=== PATIENT | female | born 1965 ===

== ENCOUNTER 2022-02-05 06:53 | Day surgery (SDC) | payer OTHER, SELFPAY ==
[2022-02-01 12:47] VITALS: BMI 25.7
--- NOTE | 2022-02-04 10:37 | P.CONAN_ITS ---
Documented by User: Chanelle Escobar NP 02/04/22 10:37 HPI - Anesthesia Eval Consult details Narrative: 56yo F for Colonoscopy PMFSH Past Medical History Medical History (Updated 02/01/22 @ 12:48 by Snehal Leiva RN) Asthma COVID-19 vaccine series completed Elevated cholesterol GERD (gastroesophageal reflux disease) Surgical History Surgical History (Updated 02/01/22 @ 12:47 by Snehal Leiva RN) H/O colonoscopy History of esophagogastroduodenoscopy (EGD) Hx of nasal polypectomy Social History Social History Are you a primary child care center administrator to a significant other at home: No Do you presently have visiting nurse or other home services: No Patient Tobacco Use Status: Never used Tobacco Use of substances other than those prescribed or required for medical reasons: No Have you been hit, kicked, punched, or otherwise hurt by someone within the past year? If so, by whom?: No Are you DNR?: No Advance Directives: No Advance Directives Information Provided: Yes (brochure mailed) Advance Directives on File: No Recently lost weight without trying: No Eating poorly because of decreased appetite: No Nutrition Risks: No Nutritional Risk Poor oral hygiene: No Meds Allergies Allergy/AdvReac Type Severity Reaction Status Date / Time almond Allergy Intermediate Itching ? Verified 02/01/22 12:53 animal dander Allergy Intermediate asthma Verified 02/01/22 12:45 exacerbation mite-Dermatophagoides Allergy Intermediate asthma Verified 02/01/22 12:45 farinae, louie exacerbation [dust mite - [place]] soy Allergy Intermediate Itching ? Verified 02/01/22 12:53 Home Medications Medication Instructions Recorded Confirmed Last Taken Type albuterol sulfate 90 mcg/actuation 2 puff PO Q4H PRN 02/01/22 02/01/22 Unknown History aerosol inhaler dupilumab 300 mg/2 mL subcutaneous 300 mg SUBCUT Q4W 02/01/22 02/01/22 Unknown History pen injector (Dupixent) fluticasone 500 mcg-salmeterol 50 1 puff PO BID 02/01/22 02/01/22 Unknown History mcg/dose blistr powdr for inhalation (Advair Diskus) loratadine 10 mg tablet 10 mg PO DAILY 02/01/22 02/01/22 Unknown History montelukast 10 mg tablet 1 tab PO BEDTIME 02/01/22 02/01/22 Unknown History omeprazole 20 mg capsule,delayed 1 cap PO DAILY 02/01/22 02/01/22 Unknown History release umeclidinium 62.5 mcg/actuation 1 puff PO DAILY 02/01/22 02/01/22 Unknown History blister powder for inhalation (Incruse Ellipta) Exam Exam Date and Time: February 04, 2022 1037 Height,Weight and Vital Signs: Height 5 ft 7 in Weight 74.389 kg Assessment and Plan Assessment Anesthesia Assessment: Chart Reviewed Documented by User: Heaven Lu MD 02/05/22 08:30 PMFSH Active Problems Active Problems: Allergies Asthma. Inhaler prn Past Medical History Medical History (Updated 02/01/22 @ 12:48 by Snehal Leiva RN) Asthma COVID-19 vaccine series completed Elevated cholesterol GERD (gastroesophageal reflux disease) Family History Family history of problems with anesthesia: No Surgical History Surgical History (Updated 02/01/22 @ 12:47 by Snehal Leiva RN) H/O colonoscopy History of esophagogastroduodenoscopy (EGD) Hx of nasal polypectomy History of Problems with Anesthesia: No Social History Social History Are you a primary child care center administrator to a significant other at home: No Do you presently have visiting nurse or other home services: No Patient Tobacco Use Status: Never used Tobacco Use of substances other than those prescribed or required for medical reasons: No Have you been hit, kicked, punched, or otherwise hurt by someone within the past year? If so, by whom?: No Are you DNR?: No Advance Directives: No Advance Directives Information Provided: Yes (brochure mailed) Advance Directives on File: No Recently lost weight without trying: No Eating poorly because of decreased appetite: No Nutrition Risks: No Nutritional Risk Poor oral hygiene: No Meds Allergies Allergy/AdvReac Type Severity Reaction Status Date / Time almond Allergy Intermediate Itching ? Verified 02/01/22 12:53 animal dander Allergy Intermediate asthma Verified 02/01/22 12:45 exacerbation mite-Dermatophagoides Allergy Intermediate asthma Verified 02/01/22 12:45 farinae, louie exacerbation [dust mite - [place]] soy Allergy Intermediate Itching ? Verified 02/01/22 12:53 Home Medications Medication Instructions Recorded Confirmed Last Taken Type albuterol sulfate 90 mcg/actuation 2 puff PO Q4H PRN 02/01/22 02/01/22 Unknown History aerosol inhaler dupilumab 300 mg/2 mL subcutaneous 300 mg SUBCUT Q4W 02/01/22 02/01/22 Unknown History pen injector (Dupixent) fluticasone 500 mcg-salmeterol 50 1 puff PO BID 02/01/22 02/01/22 Unknown History mcg/dose blistr powdr for inhalation (Advair Diskus) loratadine 10 mg tablet 10 mg PO DAILY 02/01/22 02/01/22 Unknown History montelukast 10 mg tablet 1 tab PO BEDTIME 02/01/22 02/01/22 Unknown History omeprazole 20 mg capsule,delayed 1 cap PO DAILY 02/01/22 02/01/22 Unknown History release umeclidinium 62.5 mcg/actuation 1 puff PO DAILY 02/01/22 02/01/22 Unknown History blister powder for inhalation (Incruse Ellipta) Exam Height,Weight and Vital Signs: Height 5 ft 7 in Weight 74.389 kg Vital Signs Temp Pulse Resp BP Pulse Ox 02/05/22 07:01 97 F 99 17 116/72 99 Airway Mallampati Class: II TM Dist: >3cm Neck ROM: Full Loose/Missing/Broken Teeth: No Heart: RRR Lungs: CTAB Assessment and Plan Assessment Anesthesia Assessment: Anesthesia Plan Discussed Final Anesthetic Review Family History of Problems with Anesthesia: No History of Problems with Anesthesia: No NPO: Yes ASA Class: II Final Preanesthetic Review: No Changes in Pt Med Stat, Meds/Allgs Chart Reviewed, Consent Obtained/Reviewed and Anes Risks/Benef Reviewed Patient Risk: Low Procedure Risk: Low Assessment/Block/Sedation in SS: Assess/Block/Sedation-SS Anesthetic Plan Anesthetic Plan: MAC: Disposition: Standard PACU
[2022-02-05 07:01] VITALS: BP 116/72; PULSE 99; RESP 17; TEMP 36.1; O2SAT 99
[2022-02-05] MEDS: Lactated Ringers 1,000 ML 100 ML IVCONT (07:22)
--- NOTE | 2022-02-05 08:01 | P.HPSUR_ITS ---
Pre-Procedural Eval Section A Date of Service: 02/05/22 The patient is an INPATIENT: No Changes since office visit: No Cold of Flu in the past 2 weeks, No New Medical Problems, No Changes in Medication and No Patient answered all questions The History & Physical has been completed within 30 days and I have reviewed it.: Yes Section B Chief Complaint: screening Allergies: Allergies Allergy/AdvReac Type Severity Reaction Status Date / Time almond Allergy Intermediate Itching ? Verified 02/01/22 12:53 animal dander Allergy Intermediate asthma Verified 02/01/22 12:45 exacerbation mite-Dermatophagoides Allergy Intermediate asthma Verified 02/01/22 12:45 farinae, louie exacerbation [dust mite - [place]] soy Allergy Intermediate Itching ? Verified 02/01/22 12:53 Plan I have reviewed the history and physical and performed a pertinent physical examination on my patient. No changes have occurred unless specified.
[2022-02-05 08:40] VITALS: BP 106/68; PULSE 78; RESP 16; TEMP 36.5; O2SAT 100
--- NOTE | 2022-02-05 08:48 | PM.OP ---
Brief Operative Note Date of Service: 02/05/22 Pre-op diagnosis: screening Post-op diagnosis: same (colitis) Surgeon: Lasha Soria Anesthesia: MAC Was an History Faculty Member used for this Procedure?: No Estimated blood loss (mL): 5 Pathology: other (multiple bxs) Condition: stable Disposition: PACU
[2022-02-05 08:55] VITALS: BP 113/68; PULSE 82; RESP 16; O2SAT 100
--- NOTE | 2022-02-05 12:05 | OP_ITS ---
SURGEON: Lasha Soria MD INDICATIONS: Colon cancer screening. PREOPERATIVE DIAGNOSIS: POSTOPERATIVE DIAGNOSIS: PROCEDURE PERFORMED: Colonoscopy to the terminal ileum with biopsy. ESTIMATED BLOOD LOSS: COMPLICATIONS: ANESTHESIA: ASSISTANTS: SPECIMENS: MEDICATIONS: Monitored anesthesia care. DESCRIPTION OF PROCEDURE: History and physical were performed. The risks and benefits of the procedure were explained to the patient. An informed consent was obtained. The patient was placed in the left lateral decubitus position. A digital rectal exam was performed and was found to be normal. The Olympus pediatric video colonoscope was introduced into the rectum and advanced to cecum without difficulty. The cecum was identified by transillumination, palpation, and identification of ileocecal valve. Examination was performed. The scope was removed. She tolerated the procedure well and returned to recovery area in stable condition. FINDINGS: The terminal ileum was examined and appeared normal. The visualized colonic mucosa showed changes of colitis throughout the colon beginning in the rectum and extending to the cecum. The changes included erythema, edema, loss of vascular pattern, and punctate superficial ulceration measuring 1 to 3 mm. The mucosa was friable. The appearance was consistent with ulcerative colitis. Biopsies were obtained beginning in the cecum extending throughout the colon. Biopsies were also obtained from the normal-appearing terminal ileum. No polyps were identified. Retroflexed examination showed internal hemorrhoids. IMPRESSION: Colitis. RECOMMENDATION: Follow up the biopsy results. MD MARQUEZ Gray/MENDEZ / [id number]
== END 2022-02-05 10:00 | disposition home or self-care (01) ==
PROVIDERS: Visit Provider Internal Medicine Gastroenterology
PROC: 0DJD8ZZ Inspection of Lower Intestinal Tract, Via Natural or Artificial Opening Endoscopic (ICD-10-PCS; CPT 45378; principal; 2022-02-05 08:10)
DX: Z12.11 Encounter for screening for malignant neoplasm of colon (principal); Z83.71 Family history of colonic polyps; K51.80 Other ulcerative colitis without complications; K21.9 Gastro-esophageal reflux disease without esophagitis; K64.8 Other hemorrhoids; E78.00 Pure hypercholesterolemia, unspecified; J45.909 Unspecified asthma, uncomplicated; Z79.51 Long term (current) use of inhaled steroids; Z79.899 Other long term (current) drug therapy
CPT/HCPCS: 45380; 88305

== ENCOUNTER 2022-02-15 12:04 | Emergency (ER) | payer OTHER, SELFPAY ==
--- NOTE | ~2022-02-15 | CT_ITS ---
EXAMINATION: CT ABDOMEN AND PELVIS WITHOUT CONTRAST CLINICAL INFORMATION: Colitis. COMPARISON: None TECHNIQUE: Multidetector volumetric imaging was performed from the superior aspect of the liver through the pubic symphysis. Sagittal and coronal reformatted images were obtained on the technologist's workstation. This CT examination was performed using dose optimization techniques as appropriate, variously including the following: *Automated exposure control *Adjustment of mA and/or kV according to patient size (this includes techniques or standardized protocols for targeted exams where dose is matched to indication/reason for exam; i.e. extremities or head) *Use of iterative reconstruction technique DLP: 619 mGy-cm FINDINGS: LUNG BASES: The lung bases are unremarkable. LIVER, GALLBLADDER, AND BILIARY TREE: The liver is normal in size, shape, and attenuation. No focal hepatic lesion or biliary ductal dilatation is present. The gallbladder is unremarkable with no evidence of radiopaque gallstones, gallbladder wall thickening, or obvious pericholecystic inflammatory changes. PANCREAS: Unremarkable. SPLEEN: Unremarkable. ADRENAL GLANDS: Unremarkable. KIDNEYS AND URETERS: The kidneys are normal in size, shape, and attenuation. There is a nonobstructive 5 mm radiopaque calculi lower pole right kidney. No caliectasis seen. No additional radiopaque calculi. No perinephric stranding. BLADDER: The bladder is nondistended GASTROINTESTINAL TRACT: There is diffuse mural thickening involving the ascending, transverse and descending colon suggestive of inflammatory or infectious colitis. The small bowel loops are normal caliber. Appendix is normal caliber. No free fluid or free air seen. There is no abscess, free air or free fluid seen. The stomach is nondistended. ABDOMINAL WALL: There is a small umbilical hernia containing fat. LYMPH NODES: Normal. VASCULAR: Unremarkable. PELVIC VISCERA: There is a amorphous calcification in the right pelvis. The uterus is midline. No adnexal mass seen. There is extensive fat stranding around the sigmoid colon and the rectum on inflammatory bowel disease. No abscess seen. OSSEOUS STRUCTURES: Mild bilateral L5-S1, L4-L5 facet joint arthropathy. CT/CT abdomen pelvis wo con IMPRESSION: Diffuse mural thickening involving the entire colon and rectum suggestive of inflammatory or infectious colitis. There is no proximal bowel obstruction, free fluid or abscess. Normal appendix. Nonobstructive radiopaque calculi lower pole right kidney. Fleischner guidelines were followed.
[2022-02-15 12:22] VITALS: BP 112/69; PULSE 101; RESP 18; TEMP 36; O2SAT 99; BMI 24.3
[2022-02-15 16:04] LABS: Anion Gap 13 (12-20); Blood Urea Nitrogen 11 mg/dL (9-16); Calcium 8.7 mg/dL (8.4-10.2); Carbon Dioxide 26 mmol/L (22-29); Chloride 96 mmol/L (96-108); Creatinine Clr Calc Pharmacy 63.4; Estimated Glomerular Filt Rate > 60; Glucose Random 122 mg/dL (60-115); Potassium 5.5 mmol/L (3.3-5.1); Sodium 129 mmol/L (135-145)
[2022-02-15 16:14] LABS: Basophils Absolute Auto 0.1 X10*3/uL (0.0-0.2); Basophils Percent Auto 0.3 % (0-2); Eosinophils Absolute Auto 2.9 X10*3/uL (0.0-0.4); Eosinophils Percent Auto 15.4 % (0-4); Hematocrit 38.2 % (37.0-47.0); Hemoglobin 12.5 g/dl (12.0-16.0); Imm Gran Abs Auto 0.31 X10*3/uL (0.00-0.03); Imm Gran Pct Auto 1.7 % (0.0-0.4); Lymphocytes Absolute Auto 2.7 X10*3/uL (1.2-4.9); Lymphocytes Percent Auto 14.2 % (20-40); MANUAL DIFF FLAG SCAN; Mean Corpuscular HGB Conc 32.7 g/dl (31.0-35.0); Mean Corpuscular Volume 91.6 fL (80.0-98.0); Mean Platelet Volume 8.8 fL (9.4-12.3); Monocytes Absolute Auto 1.6 X10*3/uL (0.1-1.2); Monocytes Percent Auto 8.6 % (2-11); Neutrophils Absolute Auto 11.1 x10*3/uL (2.0-8.3); Neutrophils Percent Auto 59.8 % (45-73); Platelet Count 387 X10*3/uL (160-400); Red Blood Count 4.17 X10*6/uL (4.20-5.50); Red Cell Distribution Width 13.4 % (11.0-16.0); SCAN SMEAR FLAG 1; White Blood Count 18.6 X10*3/uL (4.8-10.8)
[2022-02-15 16:33] VITALS: BP 120/71; PULSE 99; RESP 16; TEMP 36.6; O2SAT 99
--- NOTE | 2022-02-15 16:35 | ED.ABDPAIN ---
HPI - Abdominal Pain General Chief Complaint: GI Bleed Stated Complaint: Diarrhea/blood in stool Time Seen by Provider: 02/15/22 16:34 Source: patient Mode of arrival: ambulatory Limitations: no limitations History of Present Illness HPI narrative: Patient's history of 4 weeks of diarrhea with abdominal cramping seen jack winder did colonoscopy in 02/05 shows nonspecific colitis comes here as still having the diarrhea and abdominal cramps unable to eat much for last few days patient does have about 7-8 times loose bowel movements every day had some streaks of blood. No nausea no vomiting pain and diarrhea gets worse after eating Related Data Home Medications Medication Instructions Recorded Confirmed albuterol sulfate 90 mcg/actuation 2 puff PO Q4H PRN 02/01/22 02/01/22 aerosol inhaler dupilumab 300 mg/2 mL subcutaneous 300 mg SUBCUT Q4W 02/01/22 02/01/22 pen injector (Dupixent) fluticasone 500 mcg-salmeterol 50 1 puff PO BID 02/01/22 02/01/22 mcg/dose blistr powdr for inhalation (Advair Diskus) loratadine 10 mg tablet 10 mg PO DAILY 02/01/22 02/01/22 montelukast 10 mg tablet 1 tab PO BEDTIME 02/01/22 02/01/22 omeprazole 20 mg capsule,delayed 1 cap PO DAILY 02/01/22 02/01/22 release umeclidinium 62.5 mcg/actuation 1 puff PO DAILY 02/01/22 02/01/22 blister powder for inhalation (Incruse Ellipta) Previous Rx's Medication Instructions Recorded ciprofloxacin HCl 500 mg tablet 500 mg PO BID #20 tab 02/15/22 (Cipro) dicyclomine 20 mg tablet 20 mg PO QID PRN #20 tab 02/15/22 metronidazole 500 mg tablet 500 mg PO BID 10 Days #20 tab 02/15/22 prednisone 20 mg tablet 40 mg PO DAILY #10 tab 02/15/22 Allergies Allergy/AdvReac Type Severity Reaction Status Date / Time almond Allergy Intermediate Itching ? Verified 02/01/22 12:53 animal dander Allergy Intermediate asthma Verified 02/01/22 12:45 exacerbation mite-Dermatophagoides Allergy Intermediate asthma Verified 02/01/22 12:45 farinae, louie exacerbation [dust mite - [place]] soy Allergy Intermediate Itching ? Verified 02/01/22 12:53 Review of Systems Review of Systems Yes all other systems are reviewed and are negative FOR[facility]LY [facility], [facility] Past Medical History Medical History Asthma COVID-19 vaccine series completed Elevated cholesterol GERD (gastroesophageal reflux disease) Surgical History H/O colonoscopy History of esophagogastroduodenoscopy (EGD) Hx of nasal polypectomy Social History Social History Are you a primary home health care coordinator to a significant other at home: No Do you presently have visiting nurse or other home services: No Patient Tobacco Use Status: Never used Tobacco Advance Directives: No Advance Directives Information Provided: No Patient : No Physical Exam ED Vital Signs: Vital Signs - 24 hr 02/15/22 12:22 02/15/22 16:33 02/15/22 19:05 Temperature 96.8 F 98 F Pulse Rate 101 H 99 100 Respiratory Rate 18 16 15 Blood Pressure 112/69 120/71 109/59 L Pulse Oximetry 99 99 100 02/15/22 19:40 Temperature Pulse Rate 92 Respiratory Rate Blood Pressure 98/56 L Pulse Oximetry 98 BMI result Body Mass Index 24.3 Appearance: Alert. Oriented X3. No acute distress. Eyes: No pallor or icterus ENT: Pharynx normal. Oral Mucosa moist Neck: Normal inspection. Neck supple. CVS: Normal heart rate and rhythm. Pulses normal. Respiratory: No respiratory distress. Equal air entry bilateral, no wheezing/rales/rhonchi Abdomen: Soft and diffuse tenderness Bowel sounds are present, no mass palpable, no CVA tenderness Skin: Skin warm and dry. Normal skin color. Normal skin turgor. Extremities: No lower extremity edema. No calf tenderness Neuro: Oriented X 3. 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 Will discharge patient home on p.o. Cipro and Flagyl along with prednisone course advised to follow up with Dr. Soria patient is on Dupixent injections for asthma Medical Records Attestation: I reviewed the patient's medical records. Lab Data Attestation: I reviewed the patient's lab results. Result diagrams: 02/15/22 15:40 02/15/22 15:40 Labs: Lab Results 02/15/22 02/15/22 Range/Units 15:40 15:40 WBC 18.6 H (4.8-10.8) X10*3/uL RBC 4.17 L (4.20-5.50) X10*6/uL Hgb 12.5 (12.0-16.0) g/dl Hct 38.2 (37.0-47.0) % MCV 91.6 (80.0-98.0) fL MCH 30.0 (27.0-33.0) pg MCHC 32.7 (31.0-35.0) g/dl RDW 13.4 (11.0-16.0) % Plt Count 387 (160-400) X10*3/uL MPV 8.8 L (9.4-12.3) fL Immature Gran % (Auto) 1.7 H (0.0-0.4) % Neut % (Auto) 59.8 (45-73) % Lymph % (Auto) 14.2 L (20-40) % Kemper % (Auto) 8.6 (2-11) % Eos % (Auto) 15.4 H (0-4) % Baso % (Auto) 0.3 (0-2) % Lymph # (Auto) 2.7 (1.2-4.9) X10*3/uL Kemper # (Auto) 1.6 H (0.1-1.2) X10*3/uL Eos # (Auto) 2.9 H (0.0-0.4) X10*3/uL Baso # (Auto) 0.1 (0.0-0.2) X10*3/uL Abs Immat Gran (auto) 0.31 H (0.00-0.03) X10*3/uL Absolute Neuts (auto) 11.1 H (2.0-8.3) x10*3/uL Absolute Nucleated RBC 0.000 (0.0-0.012) X10*3/uL Nucleated RBC % (auto) 0.0 (0.0-0.2) /100WBC Smear Tech's Comments VERIFIED Sodium 129 L (135-145) mmol/L Potassium 5.5 H (3.3-5.1) mmol/L Chloride 96 (96-108) mmol/L Carbon Dioxide 26 (22-29) mmol/L Anion Gap 13 (12-20) BUN 11 (9-16) mg/dL Creatinine 0.94 (0.5-1.4) mg/dL Estim Creat Clear Calc 63.4 Estimated GFR > 60 Random Glucose 122 H (60-115) mg/dL Calcium 8.7 (8.4-10.2) mg/dL Total Bilirubin 0.5 (0.0-1.0) mg/dL Direct Bilirubin 0.3 (0.0-0.5) mg/dL AST 15 (5-31) U/L ALT 16 (0-31) U/L Alkaline Phosphatase 93 (39-117) U/L C-Reactive Protein 16.75 H (< or = 0.50) mg/dL Total Protein 7.0 (6.5-8.0) g/dL Albumin 3.0 L (3.5-5.0) g/dL Discharge Plan Discharge Clinical Impression: Colitis Patient Disposition: Home, Self-Care Instructions: Colitis (ED) Additional Instructions: Drink plenty of fluids Take antibiotic as prescribed along with prednisone Follow-up with gastroenterology Prescriptions: New prednisone 20 mg tablet 40 mg PO DAILY Qty: 10 0RF ciprofloxacin HCl [Cipro] 500 mg tablet 500 mg PO BID Qty: 20 0RF metronidazole 500 mg tablet 500 mg PO BID 10 Days Qty: 20 0RF dicyclomine 20 mg tablet 20 mg PO QID PRN (Reason: abdominal pain) Qty: 20 0RF No Action fluticasone propion-salmeterol [Advair Diskus] 500-50 mcg/dose blister with device 1 puff PO BID 0RF omeprazole 20 mg capsule,delayed release(DR/EC) 1 cap PO DAILY 0RF montelukast 10 mg tablet 1 tab PO BEDTIME 0RF albuterol sulfate 90 mcg/actuation HFA aerosol inhaler 2 puff PO Q4H PRN (Reason: wheezing) 0RF Incruse Ellipta 62.5 mcg/actuation blister with device 1 puff PO DAILY 0RF Dupixent Pen 300 mg/2 mL pen injector 300 mg subcut Q4W 0RF loratadine 10 mg Tablet 10 mg PO DAILY 0RF Referrals: Lasha Soria [Physician] - 3 days Stand Alone Forms: Work/School Release Interventions: ED Discharge Assessment Last Done: 02/15/22 19:30 Discharge Date/Time: 02/15/22 19:57
[2022-02-15] MEDS: Dicyclomine HCl 10 MG CAPSULE 20 MG PO (17:06)
[2022-02-15] MEDS: 0.9 % Sodium Chloride 1,000 ML 999 ML IV (17:14)
[2022-02-15] MEDS: metroNIDAZOLE/NS 500 MG/100 ML PIGGYBACK 100 MG IV (17:14)
[2022-02-15 17:25] LABS: Alanine Aminotransferase 16 U/L (0-31); Alkaline Phosphatase 93 U/L (39-117); Aspartate Amino Transferase 15 U/L (5-31); Bilirubin Direct 0.3 mg/dL (0.0-0.5); Bilirubin Total 0.5 mg/dL (0.0-1.0); C Reactive Protein 16.75 mg/dL (< or = 0.50)
[2022-02-15] MEDS: levoFLOXacin/D5W 500 MG/100 ML PIGGYBACK 100 MG IV (18:17)
[2022-02-15 18:24] LABS: SLIDE REVIEW VERIFIED
[2022-02-15 19:05] VITALS: BP 109/59; PULSE 100; RESP 15; O2SAT 100
--- NOTE | 2022-02-15 19:05 | PC.NURSE ---
pt ambulated to BR independently with no c/o dizziness, to give stool spec. pt voided in collection hat accidentally. pt educated that we need a bowel spec without urine in it
[2022-02-15] MEDS: methylPREDNISolone Sod Succ 125 MG/2 ML VIAL IVPUSH (19:31)
[2022-02-15 19:40] VITALS: BP 98/56; PULSE 92; O2SAT 98
== END 2022-02-15 19:57 | disposition home or self-care (01) ==
PROVIDERS: Emergency Provider Internal Medicine
DX: K52.9 Noninfective gastroenteritis and colitis, unspecified (principal); D72.10 Eosinophilia, unspecified; J45.909 Unspecified asthma, uncomplicated
CPT/HCPCS: 36415; 74176; 80048; 80076; 85025; 86140; 96361; 96374; 96375; 99284; J1956; J2930

== ENCOUNTER 2022-12-30 11:51 | Inpatient (IN) | payer MEDICAID, SELFPAY ==
--- NOTE | ~2022-12-30 | CT_ITS ---
EXAMINATION: CT ABDOMEN AND PELVIS WITHOUT CONTRAST CLINICAL INFORMATION: Abdominal pain and bloody diarrhea. COMPARISON: 02/15/2022 TECHNIQUE: Multidetector volumetric imaging was performed from the superior aspect of the liver through the pubic symphysis. Sagittal and coronal reformatted images were obtained on the technologist's workstation. This CT examination was performed using dose optimization techniques as appropriate, variously including the following: *Automated exposure control *Adjustment of mA and/or kV according to patient size (this includes techniques or standardized protocols for targeted exams where dose is matched to indication/reason for exam; i.e. extremities or head) *Use of iterative reconstruction technique DLP: 591 mGy-cm FINDINGS: LUNG BASES: Normal. No pulmonary consolidation or pleural effusion. LIVER: Liver has normal size and contour. The parenchyma has density of 35-40 Hounsfield units. No focal liver lesion is identified on this noncontrast examination. GALLBLADDER AND BILIARY TREE: Gallbladder is physiologically distended and without radiopaque stones, wall thickening or pericholecystic fluid. No dilated bile ducts. PANCREAS: Normal. No edema, pancreatic ductal dilatation or mass. SPLEEN: Normal. ADRENAL GLANDS: Normal. KIDNEYS AND URETERS: The kidneys have normal size and cortical thickness. No perinephric edema or fluid collection. No urolithiasis or hydroureteronephrosis. The stone previously observed at the lower pole of the right kidney is no longer identified. BLADDER: Normal. No calculi or wall thickening. BOWEL AND PERITONEUM: The evaluation of the gastrointestinal tract is partially limited on this examination performed without use of oral or intravenous contrast. The stomach is underdistended and grossly normal. Small bowel is unremarkable. The appendix is normal. There is mild circumferential thickening of the colonic wall from the level of the cecum to the rectum. The colonic wall thickening was worse on 02/15/2022. No abdominal free fluid, free air or abscess. ABDOMINAL WALL: Unremarkable. VASCULATURE: Normal for a noncontrast examination. LYMPH NODES: No pathologic sized lymph nodes in the abdomen or pelvis. No inguinal lymphadenopathy. PELVIC VISCERA: Unremarkable. MUSCULOSKELETAL: Again noted is a lipoma of the left gluteus minimus muscle. Chronic facet osteoarthritis of L4-L5 and L5-S1 and minimal anterolisthesis of L5 on S1. No suspicious bone lesions. CT/CT abdomen pelvis wo IV con IMPRESSION: * This noncontrast examination suggests presence of mild pancolitis. Note that the colonic wall thickening, inflammatory changes, were worse on the prior exam from 02/15/2022. The stomach and small bowel are grossly unremarkable. * Diffuse hepatic steatosis. * The previously observed stone of the lower pole of the right kidney is no longer present. No new renal stones or hydronephrosis.
[2022-12-30 12:13] VITALS: BP 140/74; PULSE 106; RESP 16; TEMP 37.1; O2SAT 96; BMI 26.6
--- NOTE | 2022-12-30 12:18 | ED_ITS ---
HPI - General Adult General Chief complaint: GI Bleed <Panchito Lane - Last Filed: 12/30/22 12:19> Stated complaint: Rectal bleed/Colitis <Panchito Lane - Last Filed: 12/30/22 12:19> Time Seen by Provider: 12/30/22 20:29 <Panchito Lane - Last Filed: 12/30/22 12:19> Source: patient and family (Son) <Goran Case MD - Last Filed: 12/30/22 20:59> Mode of arrival: ambulatory <Goran Case MD - Last Filed: 12/30/22 20:59> Limitations: no limitations <Goran Case MD - Last Filed: 12/30/22 20:59> History of Present Illness HPI narrative: 57-year-old female came in for evaluation of bright red blood per rectum started 3 days ago. Patient also been complaining of generalized crampy abdominal pain for the past 2-3 days, no nausea, no vomiting, nonbloody watery diarrhea, patient has been noticing bright red blood per rectum, no fever, no chills. <Goran Case MD - Last Filed: 12/30/22 20:59> Related Data Home medications: Home Medications Medication Instructions Recorded Confirmed albuterol sulfate 90 mcg/actuation 2 puff PO Q4H PRN wheezing 02/01/22 02/01/22 aerosol inhaler dupilumab 300 mg/2 mL subcutaneous 300 mg subcut Q4W 02/01/22 02/01/22 pen injector (Dupixent) fluticasone 500 mcg-salmeterol 50 1 puff PO BID 02/01/22 02/01/22 mcg/dose blistr powdr for inhalation (Advair Diskus) loratadine 10 mg tablet 10 mg PO DAILY 02/01/22 02/01/22 montelukast 10 mg tablet 1 tab PO BEDTIME 02/01/22 02/01/22 omeprazole 20 mg capsule,delayed 1 cap PO DAILY 02/01/22 02/01/22 release umeclidinium 62.5 mcg/actuation 1 puff PO DAILY 02/01/22 02/01/22 blister powder for inhalation (Incruse Ellipta) Previous Rx's Medication Instructions Recorded ciprofloxacin HCl 500 mg tablet 500 mg PO BID #20 tabs 02/15/22 (Cipro) dicyclomine 20 mg tablet 20 mg PO QID PRN abdominal pain 02/15/22 #20 tabs metronidazole 500 mg tablet 500 mg PO BID 10 days #20 tabs 02/15/22 prednisone 20 mg tablet 40 mg PO DAILY #10 tabs 02/15/22 <[address] - Last Filed: 12/30/22 12:19> Allergies/adverse reactions: Allergies Allergy/AdvReac Type Severity Reaction Status Date / Time almond Allergy Intermediate Itching ? Verified 12/30/22 12:13 animal dander Allergy Intermediate asthma Verified 12/30/22 12:13 exacerbation mite-Dermatophagoides Allergy Intermediate asthma Verified 12/30/22 12:13 farinae, louie exacerbation [dust mite - [place]] soy Allergy Intermediate Itching ? Verified 12/30/22 12:13 <Panchito Lane - Last Filed: 12/30/22 12:19> Review of Systems Review of Systems: All other systems are reviewed and are negative Constitutional: Reports as per HPI and Reports no additional constitutional complaints Eyes: Reports as per HPI and Reports no additional eye complaints Reports system reviewed and no additional complaints, except as documented Cardiovascular: Reports as per HPI and Reports no additional cardiovascular complaints Respiratory: Reports as per HPI and Reports no additional respiratory complaints Gastrointestinal: Reports as per HPI and Reports no additional gastrointestinal complaints Genitourinary: Reports no additional female genitourinary complaints Musculoskeletal: Reports no additional musculoskeletal complaints Skin/Breast: Reports system reviewed and no additional complaints, except as docu Psychiatric: Reports no additional psychiatric complaints Endocrine: Reports no additional endocrine complaints Hematologic/Lymphatic: Reports no additional hematologic/lymphatic complaints Allergic/Immunologic: Reports no additional allergic/immunologic complaints Reports system reviewed and no additional complaints, except as documented and Reports Abnormal speech present <Goran Case MD - Last Filed: 12/30/22 20:59> [facility] Past Medical History Medical History: Medical History Asthma COVID-19 vaccine series completed Elevated cholesterol GERD (gastroesophageal reflux disease) <Panchito Lane - Last Filed: 12/30/22 12:19> Surgical History: Surgical History H/O colonoscopy History of esophagogastroduodenoscopy (EGD) Hx of nasal polypectomy <Panchito Lane - Last Filed: 12/30/22 12:19> Social History Social History: Social History Are you a primary career services director to a significant other at home: No Do you presently have visiting nurse or other home services: No Patient Tobacco Use Status: Never used Tobacco Advance Directives: No Advance Directives Information Provided: Yes <Panchito Lane - Last Filed: 12/30/22 12:19> Physical Exam ED Vital Signs: Vital Signs - 24 hr 12/30/22 12:13 12/30/22 20:50 Temperature 98.7 F 97.5 F Pulse Rate 106 H 106 H Respiratory Rate 16 18 Blood Pressure 140/74 H 116/66 Pulse Oximetry 96 95 Oxygen Delivery Method Room Air Room Air BMI result Body Mass Index 26.6 <Panchito Lane - Last Filed: 12/30/22 12:19> Vital Signs - 24 hr 12/30/22 12:13 12/30/22 20:50 Temperature 98.7 F 97.5 F Pulse Rate 106 H 106 H Respiratory Rate 16 18 Blood Pressure 140/74 H 116/66 Pulse Oximetry 96 95 Oxygen Delivery Method Room Air Room Air BMI result Body Mass Index 26.6 Vital signs have been reviewed as appeared to be correct. Blood pressure normal. Heart rate elevated. Respiration rate normal. Temperature normal. Oxygen saturation normal. <Goran Case MD - Last Filed: 12/30/22 20:59> Appearance: Alert. Oriented X3. No acute distress. Head: Normal external exam. Normocephalic. Atraumatic. No Salazar signs noted. No raccoon eyes noted Eyes: PERRLA. EOMI. Conjunctiva and sclera normal. Eyelids normal. ENT: TM's Normal. Pharynx normal. Uvula midline. Moist mucous membranes. No trismus noted. No drooling noted. No muffled voice noted. Neck: Normal inspection. Neck supple. FROM. No adenopathy. Thyroid Normal. No meningeal signs. No neck mass noted. CVS: Normal heart rate and rhythm. Heart sound normal. No murmurs noted. Pulses normal throughout. Respiratory: No respiratory distress. Painless inspiration. Breath sounds normal. No wheezes/rales/rhonchi noted. Chest nontender. No accessory muscle usage noted or decreased air movement noted. Abdomen: Soft and nontender. Bowel sounds normal in all 4 quadrants. No di stention noted. No organomegaly noted. No visible injury noted. Rectal exam: No external hemorrhoid, no palpable internal hemorrhoid, bright red blood in the rectal vault. Back: No CVA tenderness. Full range of motion noted. Skin: Skin warm and dry. Normal skin color. Normal skin turgor. No rashes/lesions/lacerations noted. Extremities: No lower extremity edema. Extremities exhibit normal range of motion. Extremities nontender. Neuro: Oriented X 3. Cranial nerve exam: II-XII are grossly intact No motor deficit. No sensory deficit. Reflexes normal. <Goran Case MD - Last Filed: 12/30/22 20:59> Course Course Course Narrative: 57-year-old female with past medical history significant for ulcerative colitis presents for evaluation of abdominal pain and bloody diarrhea x3 days. Plan for labs including coags, CT scan <Panchito Lane - Last Filed: 12/30/22 12:19> Reevaluation(s) Reevaluation #1: Bright red blood per rectum for the past 3 days, stable vital signs, stable H&H, CT of the abdomen pelvis is showing valentin colitis, will admit for pain control, IV hydration, IV Solu-Medrol. <Goran Case MD - Last Filed: 12/30/22 20:59> Medical Decision Making Differential Diagnosis Differential Diagnoses: The differential diagnosis associated with the presentation includes (Rectal bleeding, colitis, diverticular disease, GI malignancy, hemorrhoid, rectal fissure.) <Goran Case MD - Last Filed: 12/30/22 20:59> Admission/Observation Consideration of admission/observation: Escalation of care including admission/observation considered <Goran Case MD - Last Filed: 12/30/22 20:59> Consult Healthcare Provider Management of the patient was discussed with: Hospitalist (Leo) <Goran Case MD - Last Filed: 12/30/22 20:59> Lab Data [facility] Lab Attestation statement: I reviewed the patient's lab results. <Goran Case MD - Last Filed: 12/30/22 20:59> Result Diagrams: 12/30/22 12:29 12/30/22 12:29 <[address]ito [address] - Last Filed: 12/30/22 12:19> Labs: Lab Results 12/30/22 12/30/22 12/30/22 Range/Units 12:29 12:29 12:29 WBC 13.2 H (4.8-10.8) X10*3/uL RBC 4.33 (4.20-5.50) X10*6/uL Hgb 12.8 (12.0-16.0) g/dl Hct 39.9 (37.0-47.0) % MCV 92.1 (80.0-98.0) fL MCH 29.6 (27.0-33.0) pg MCHC 32.1 (31.0-35.0) g/dl RDW 14.8 (11.0-16.0) % Plt Count 259 D (160-400) X10*3/uL MPV 9.1 L (9.4-12.3) fL Immature Gran % (Auto) 0.3 (0.0-0.4) % Neut % (Auto) 75.6 H (45-73) % Lymph % (Auto) 8.3 L (20-40) % Payne % (Auto) 7.6 (2-11) % Eos % (Auto) 8.0 H (0-4) % Baso % (Auto) 0.2 (0-2) % Lymph # (Auto) 1.1 L (1.2-4.9) X10*3/uL Payne # (Auto) 1.0 (0.1-1.2) X10*3/uL Eos # (Auto) 1.1 H (0.0-0.4) X10*3/uL Baso # (Auto) 0.0 (0.0-0.2) X10*3/uL Abs Immat Gran (auto) 0.04 H (0.00-0.03) X10*3/uL Absolute Neuts (auto) 10.0 H (2.0-8.3) x10*3/uL Absolute Nucleated RBC 0.000 (0.0-0.012) X10*3/uL Nucleated RBC % (auto) 0.0 (0.0-0.2) /100WBC PT 11.3 (10.0-13.1) SEC INR 1.0 (0.9-1.1) APTT 25.1 L (26.0-36.4) SEC Sodium 135 (135-145) mmol/L Potassium 4.3 D (3.3-5.1) mmol/L Chloride 101 (96-108) mmol/L Carbon Dioxide 25 (22-29) mmol/L Anion Gap 13 (12-20) BUN 14 (9-16) mg/dL Creatinine 1.08 (0.5-1.4) mg/dL Estim Creat Clear Calc 60.0 Estimated GFR 52 Random Glucose 121 H (60-115) mg/dL Calcium 9.0 (8.4-10.2) mg/dL Total Bilirubin 1.7 H (0.0-1.0) mg/dL AST 72 H (5-31) U/L ALT 83 H (0-31) U/L Alkaline Phosphatase 104 (39-117) U/L Total Protein 7.5 (6.5-8.0) g/dL Albumin 4.3 (3.5-5.0) g/dL Lipase 86 H (8-78) U/L Blood Type Antibody Screen 12/30/22 Range/Units 12:29 WBC (4.8-10.8) X10*3/uL RBC (4.20-5.50) X10*6/uL Hgb (12.0-16.0) g/dl Hct (37.0-47.0) % MCV (80.0-98.0) fL MCH (27.0-33.0) pg MCHC (31.0-35.0) g/dl RDW (11.0-16.0) % Plt Count (160-400) X10*3/uL MPV (9.4-12.3) fL Immature Gran % (Auto) (0.0-0.4) % Neut % (Auto) (45-73) % Lymph % (Auto) (20-40) % [place] % (Auto) (2-11) % Eos % (Auto) (0-4) % Baso % (Auto) (0-2) % Lymph # (Auto) (1.2-4.9) X10*3/uL Payne # (Auto) (0.1-1.2) X10*3/uL Eos # (Auto) (0.0-0.4) X10*3/uL Baso # (Auto) (0.0-0.2) X10*3/uL Abs Immat Gran (auto) (0.00-0.03) X10*3/uL Absolute Neuts (auto) (2.0-8.3) x10*3/uL Absolute Nucleated RBC (0.0-0.012) X10*3/uL Nucleated RBC % (auto) (0.0-0.2) /100WBC PT (10.0-13.1) SEC INR (0.9-1.1) APTT (26.0-36.4) SEC Sodium (135-145) mmol/L Potassium (3.3-5.1) mmol/L Chloride (96-108) mmol/L Carbon Dioxide (22-29) mmol/L Anion Gap (12-20) BUN (9-16) mg/dL Creatinine (0.5-1.4) mg/dL Estim Creat Clear Calc Estimated GFR Random Glucose (60-115) mg/dL Calcium (8.4-10.2) mg/dL Total Bilirubin (0.0-1.0) mg/dL AST (5-31) U/L ALT (0-31) U/L Alkaline Phosphatase (39-117) U/L Total Protein (6.5-8.0) g/dL Albumin (3.5-5.0) g/dL Lipase (8-78) U/L Blood Type O Positive Antibody Screen NEGATIVE <Panchito Lane - Last Filed: 12/30/22 12:19> Lab Results 12/30/22 12/30/22 12/30/22 Range/Units 12:29 12:29 12:29 WBC 13.2 H (4.8-10.8) X10*3/uL RBC 4.33 (4.20-5.50) X10*6/uL Hgb 12.8 (12.0-16.0) g/dl Hct 39.9 (37.0-47.0) % MCV 92.1 (80.0-98.0) fL MCH 29.6 (27.0-33.0) pg MCHC 32.1 (31.0-35.0) g/dl RDW 14.8 (11.0-16.0) % Plt Count 259 D (160-400) X10*3/uL MPV 9.1 L (9.4-12.3) fL Immature Gran % (Auto) 0.3 (0.0-0.4) % Neut % (Auto) 75.6 H (45-73) % Lymph % (Auto) 8.3 L (20-40) % Payne % (Auto) 7.6 (2-11) % Eos % (Auto) 8.0 H (0-4) % Baso % (Auto) 0.2 (0-2) % Lymph # (Auto) 1.1 L (1.2-4.9) X10*3/uL Payne # (Auto) 1.0 (0.1-1.2) X10*3/uL Eos # (Auto) 1.1 H (0.0-0.4) X10*3/uL Baso # (Auto) 0.0 (0.0-0.2) X10*3/uL Abs Immat Gran (auto) 0.04 H (0.00-0.03) X10*3/uL Absolute Neuts (auto) 10.0 H (2.0-8.3) x10*3/uL Absolute Nucleated RBC 0.000 (0.0-0.012) X10*3/uL Nucleated RBC % (auto) 0.0 (0.0-0.2) /100WBC PT 11.3 (10.0-13.1) SEC INR 1.0 (0.9-1.1) APTT 25.1 L (26.0-36.4) SEC Sodium 135 (135-145) mmol/L Potassium 4.3 D (3.3-5.1) mmol/L Chloride 101 (96-108) mmol/L Carbon Dioxide 25 (22-29) mmol/L Anion Gap 13 (12-20) BUN 14 (9-16) mg/dL Creatinine 1.08 (0.5-1.4) mg/dL Estim Creat Clear Calc 60.0 Estimated GFR 52 Random Glucose 121 H (60-115) mg/dL Calcium 9.0 (8.4-10.2) mg/dL Total Bilirubin 1.7 H (0.0-1.0) mg/dL AST 72 H (5-31) U/L ALT 83 H (0-31) U/L Alkaline Phosphatase 104 (39-117) U/L Total Protein 7.5 (6.5-8.0) g/dL Albumin 4.3 (3.5-5.0) g/dL Lipase 86 H (8-78) U/L Blood Type Antibody Screen 12/30/22 Range/Units 12:29 WBC (4.8-10.8) X10*3/uL RBC (4.20-5.50) X10*6/uL Hgb (12.0-16.0) g/dl Hct (37.0-47.0) % MCV (80.0-98.0) fL MCH (27.0-33.0) pg MCHC (31.0-35.0) g/dl RDW (11.0-16.0) % Plt Count (160-400) X10*3/uL MPV (9.4-12.3) fL Immature Gran % (Auto) (0.0-0.4) % Neut % (Auto) (45-73) % Lymph % (Auto) (20-40) % Payne % (Auto) (2-11) % Eos % (Auto) (0-4) % Baso % (Auto) (0-2) % Lymph # (Auto) (1.2-4.9) X10*3/uL Payne # (Auto) (0.1-1.2) X10*3/uL Eos # (Auto) (0.0-0.4) X10*3/uL Baso # (Auto) (0.0-0.2) X10*3/uL Abs Immat Gran (auto) (0.00-0.03) X10*3/uL Absolute Neuts (auto) (2.0-8.3) x10*3/uL Absolute Nucleated RBC (0.0-0.012) X10*3/uL Nucleated RBC % (auto) (0.0-0.2) /100WBC PT (10.0-13.1) SEC INR (0.9-1.1) APTT (26.0-36.4) SEC Sodium (135-145) mmol/L Potassium (3.3-5.1) mmol/L Chloride (96-108) mmol/L Carbon Dioxide (22-29) mmol/L Anion Gap (12-20) BUN (9-16) mg/dL Creatinine (0.5-1.4) mg/dL Estim Creat Clear Calc Estimated GFR Random Glucose (60-115) mg/dL Calcium (8.4-10.2) mg/dL Total Bilirubin (0.0-1.0) mg/dL AST (5-31) U/L ALT (0-31) U/L Alkaline Phosphatase (39-117) U/L Total Protein (6.5-8.0) g/dL Albumin (3.5-5.0) g/dL Lipase (8-78) U/L Blood Type O Positive Antibody Screen NEGATIVE <Goran Case MD - Last Filed: 12/30/22 20:59> Independent Interpretation I performed an independent interpretation of an: CT Scan (Abdomen and pelvis: Valentin colitis) <Goran Case MD - Last Filed: 12/30/22 20:59> Discharge Plan Discharge Clinical Impression: Colitis, Rectal bleed <Panchito Lane - Last Filed: 12/30/22 12:19> Patient Disposition: Admitted As Inpatient <Panchito Lane - Last Filed: 12/30/22 12:19> Prescriptions: No Action prednisone 20 mg tablet 40 mg PO DAILY Qty: 10 0RF ciprofloxacin HCl [Cipro] 500 mg tablet 500 mg PO BID Qty: 20 0RF metronidazole 500 mg tablet 500 mg PO BID 10 Days Qty: 20 0RF dicyclomine 20 mg tablet 20 mg PO QID PRN (Reason: abdominal pain) Qty: 20 0RF fluticasone propion-salmeterol [Advair Diskus] 500-50 mcg/dose blister with device 1 puff PO BID omeprazole 20 mg capsule,delayed release(DR/EC) 1 cap PO DAILY montelukast 10 mg tablet 1 tab PO BEDTIME albuterol sulfate 90 mcg/actuation HFA aerosol inhaler 2 puff PO Q4H PRN (Reason: wheezing) Incruse Ellipta 62.5 mcg/actuation blister with device 1 puff PO DAILY Dupixent Pen 300 mg/2 mL pen injector 300 mg subcut Q4W loratadine 10 mg Tablet 10 mg PO DAILY <Panchito Lane - Last Filed: 12/30/22 12:19>
[2022-12-30 12:34] LABS: MANUAL DIFF FLAG NO
[2022-12-30 12:36] LABS: Basophils Percent Auto 0.2 % (0-2); Eosinophils Absolute Auto 1.1 X10*3/uL (0.0-0.4); Hematocrit 39.9 % (37.0-47.0); Hemoglobin 12.8 g/dl (12.0-16.0); Imm Gran Abs Auto 0.04 X10*3/uL (0.00-0.03); Imm Gran Pct Auto 0.3 % (0.0-0.4); Lymphocytes Absolute Auto 1.1 X10*3/uL (1.2-4.9); Lymphocytes Percent Auto 8.3 % (20-40); Mean Corpuscular HGB Conc 32.1 g/dl (31.0-35.0); Mean Corpuscular Hemoglobin 29.6 pg (27.0-33.0); Mean Corpuscular Volume 92.1 fL (80.0-98.0); Mean Platelet Volume 9.1 fL (9.4-12.3); Monocytes Percent Auto 7.6 % (2-11); Neutrophils Percent Auto 75.6 % (45-73); Platelet Count 259 X10*3/uL (160-400); Red Blood Count 4.33 X10*6/uL (4.20-5.50); Red Cell Distribution Width 14.8 % (11.0-16.0); White Blood Count 13.2 X10*3/uL (4.8-10.8)
[2022-12-30 12:40] LABS: Prothrombin Time 11.3 SEC (10.0-13.1)
[2022-12-30 12:43] LABS: Partial Thromboplastin Time 25.1 SEC (26.0-36.4)
[2022-12-30 12:52] LABS: Alanine Aminotransferase 83 U/L (0-31); Albumin Level 4.3 g/dL (3.5-5.0); Alkaline Phosphatase 104 U/L (39-117); Anion Gap 13 (12-20); Aspartate Amino Transferase 72 U/L (5-31); Bilirubin Total 1.7 mg/dL (0.0-1.0); Blood Urea Nitrogen 14 mg/dL (9-16); Carbon Dioxide 25 mmol/L (22-29); Chloride 101 mmol/L (96-108); Estimated Glomerular Filt Rate 52; Glucose Random 121 mg/dL (60-115); Lipase 86 U/L (8-78); Potassium 4.3 mmol/L (3.3-5.1); Sodium 135 mmol/L (135-145); Total Protein 7.5 g/dL (6.5-8.0)
[2022-12-30 20:50] VITALS: BP 116/66; PULSE 106; RESP 18; TEMP 36.4; O2SAT 95
[2022-12-30 20:56] LABS: OBS Int Ctl Valid YES; OBS1 POSITIVE (NEGATIVE)
[2022-12-30] MEDS: methylPREDNISolone Sod Succ 125 MG/2 ML VIAL IVPUSH (21:10)
[2022-12-30] MEDS: Morphine Sulfate 2 MG/ML CARTRIDGE IVPUSH (21:10)
--- NOTE | 2022-12-30 22:07 | PHA.MEDREC ---
Addendum entered by Yenni Starks RPh 12/30/22 22:10: Pt also states she uses furosemide every other day if needed for edema but that it has been greater than a week since she has needed it. Very infrequent use. Original Note: Pharmacy Consult ? Medication Reconciliation Pharmacy has completed the medication reconciliation. Pt is good historian and knows her medication names and doses. She is in the last few days of a prednisone taper. Current dose is 10 mg daily with only a few doses left at that dosing and then to be discontinued.
--- NOTE | 2022-12-30 23:18 | PM.IMHP ---
History of Present Illness Date of Service: 12/30/22 Chief Complaint: Bloody diarrhea This is a 57-year-old female who reports a history of ulcerative colitis for which she takes mesalamine presents the hospital with complaints of multiple episodes of diarrhea as well as blood-tinged stools. States her symptoms started several days ago, she reports that she stop taking mesalamine few weeks ago because was not doing anything for her. He has not informed her GI doctor. She states diffuse abdominal pain, she has had 6-7 episodes of diarrhea daily, she initially had nausea and 1 episode of vomiting earlier in the week that has not resolved, she denies having any headache or change in vision, reports no chest pain or shortness of breath, no urinary symptoms and no lower extremity edema. On arrival to the ED patient hemodynamically stable with no significant abnormal vitals except for a slightly elevated heart rate of 106 Labs are significant for WBC count of 13.2, total bili of 1.7, AST of 72, ALT of 83 labs otherwise unremarkable , stool occult positive Abdomen pelvic CT shows suggest presence of mild pancolitis, Patient started on steroids, will be admitted for further management Review of Systems Review of Systems: Yes all other systems are reviewed and are negative [facility] Medical History Asthma COVID-19 vaccine series completed Elevated cholesterol GERD (gastroesophageal reflux disease) Ulcerative colitis Surgical History H/O colonoscopy History of esophagogastroduodenoscopy (EGD) Hx of nasal polypectomy Social History Are you a primary health care consultant to a significant other at home: No Do you presently have visiting nurse or other home services: No Alcohol intake: never Patient Tobacco Use Status: Never used Tobacco Smoked in Last 30 Days: No Use of substances other than those prescribed or required for medical reasons: No Advance Directives: No Advance Directives Information Provided: Yes Meds Allergies Allergy/AdvReac Type Severity Reaction Status Date / Time almond Allergy Intermediate Itching ? Verified 12/30/22 12:13 animal dander Allergy Intermediate asthma Verified 12/30/22 12:13 exacerbation mite-Dermatophagoides Allergy Intermediate asthma Verified 12/30/22 12:13 farinae, louie exacerbation [dust mite - [place]] soy Allergy Intermediate Itching ? Verified 12/30/22 12:13 Active Medications: Current Medications Pharmacy Consult (Consult Rx Perform Med Rec) 1 each MISCELLANE ONCE PRN PRN Reason: Consult order Home Medications Medication Instructions Recorded Confirmed Last Taken Type albuterol sulfate 90 mcg/actuation 2 puff PO Q4H PRN wheezing 02/01/22 12/30/22 Unknown History aerosol inhaler dupilumab 300 mg/2 mL subcutaneous 300 mg subcut Q2W 02/01/22 12/30/22 12/17/22 History pen injector (Dupixent) loratadine 10 mg tablet 10 mg PO BEDTIME 02/01/22 12/30/22 12/29/22 History montelukast 10 mg tablet 1 tab PO BEDTIME 02/01/22 12/30/22 12/29/22 History omeprazole 20 mg capsule,delayed 1 cap PO DAILY@0630 02/01/22 12/30/22 12/30/22 History release ferrous sulfate 325 mg (65 mg 325 mg PO DAILY abdominal pain 12/30/22 12/30/22 12/29/22 History iron) tablet,delayed release furosemide 20 mg tablet 20 mg PO Q48H PRN Edema 12/30/22 12/30/22 Unknown History prednisone 10 mg tablet 10 mg PO DAILY 12/30/22 12/30/22 12/29/22 History Physical Exam Vital Signs and Narrative: Vital Signs: Last Vital Signs Temp 97.5 F 12/30/22 20:50 Pulse 106 H 12/30/22 20:50 Resp 18 12/30/22 20:50 BP 116/66 12/30/22 20:50 Pulse Ox 95 12/30/22 20:50 O2 Del Method Room Air 12/30/22 20:50 BMI result Body Mass Index 26.6 Const: General: cooperative and no acute distress Orientation/consciousness: patient oriented x3 Eyes: General: appearance normal, both eyes and all related structures Resp: Effort & Inspection: normal respiratory effort Auscultation: clear to auscultation bilaterally Cardio: Rate: regular rate Rhythm: regular rhythm GI: Other: Diffuse abdominal tenderness, no rebound or guarding Palpation (GI): Soft to palpation Auscultation: normal bowel sounds Skin: General skin exam: no rashes or lesions noted Neuro: General: patient oriented x3 Cognition (Neuro): normal cognition Extrem: General: Yes normal to inspection and Yes no pedal edema Results Labs 12/30/22 12:29 12/30/22 12:29 Labs: Laboratory Results - last 24 hr 12/30/22 12/30/22 12/30/22 12:29 12:29 12:29 MCV 92.1 MCH 29.6 MCHC 32.1 RDW 14.8 Plt Count 259 D MPV 9.1 L Immature Gran % (Auto) 0.3 Neut % (Auto) 75.6 H Lymph % (Auto) 8.3 L [place] % (Auto) 7.6 Eos % (Auto) 8.0 H Baso % (Auto) 0.2 Lymph # (Auto) 1.1 L [place] # (Auto) 1.0 Eos # (Auto) 1.1 H Baso # (Auto) 0.0 Abs Immat Gran (auto) 0.04 H Absolute Neuts (auto) 10.0 H Absolute Nucleated RBC 0.000 Nucleated RBC % (auto) 0.0 PT 11.3 INR 1.0 APTT 25.1 L Anion Gap 13 Estim Creat Clear Calc 60.0 Estimated GFR 52 Random Glucose 121 H Calcium 9.0 Total Bilirubin 1.7 H AST 72 H ALT 83 H Alkaline Phosphatase 104 Total Protein 7.5 Albumin 4.3 Lipase 86 H Stool Occult Blood Blood Type Antibody Screen 12/30/22 12/30/22 12:29 20:48 MCV MCH MCHC RDW Plt Count MPV Immature Gran % (Auto) Neut % (Auto) Lymph % (Auto) [place] % (Auto) Eos % (Auto) Baso % (Auto) Lymph # (Auto) [place] # (Auto) Eos # (Auto) Baso # (Auto) Abs Immat Gran (auto) Absolute Neuts (auto) Absolute Nucleated RBC Nucleated RBC % (auto) PT INR APTT Anion Gap Estim Creat Clear Calc Estimated GFR Random Glucose Calcium Total Bilirubin AST ALT Alkaline Phosphatase Total Protein Albumin Lipase Stool Occult Blood POSITIVE Blood Type O Positive Antibody Screen NEGATIVE Imaging Radiologist's Impressions: Impressions Abdomen/Pelvis CT 12/30/22 12:38 IMPRESSION: * This noncontrast examination suggests presence of mild pancolitis. Note that the colonic wall thickening, inflammatory changes, were worse on the prior exam from 02/15/2022. The stomach and small bowel are grossly unremarkable. * Diffuse hepatic steatosis. * The previously observed stone of the lower pole of the right kidney is no longer present. No new renal stones or hydronephrosis. Assessment and Plan (1) Colitis: Status: Acute (2) Rectal bleed: Status: Acute (3) Diarrhea: Status: Acute Plan This is a 57-year-old female who states a history of ulcerative colitis for which she was taking mesalamine stop taking it few weeks prior because ?does not do anything for her presents to the hospital with complaints of bloody diarrhea # abdominal pain, diarrhea - likely secondary to ulcerative colitis flare - has bloody diarrhea, with imaging suggestive of pancolitis - will obtain inflammatory markers - treatment of ulcerative colitis as below - supportive measures - IV fluids # colitis/ulcerative colitis flare - reports history of ulcerative colitis - stop taking mesalamine on her own accord without talking to her GI - started on steroids, IV antibiotics - GI panel as well as C diff pending - will consult threading machine feeder automatic - keep NPO # rectal bleed -secondary to above - hemodynamically stable - continue to monitor CBC # GERD - continue PPI, loratadine # CHF? - continue Lasix DVT prophylaxis: SCDs in the setting of bloody diarrhea Given patient's need for further evaluation patient will require minimum 2 nights inpatient hospital stay for further management and monitoring Time Spent With Patient Time: Total time managing care of this patient today ____ minutes. Quality Stroke Does the patient have a stroke diagnosis?: No VTE Prior VTE?: No VTE Risk Level:: Medical - moderate - high VTE Device Contraindication: N/A - Device Ordered VTE Drug Contraindication: Treatment Not Indicated
[2022-12-30] MEDS: cefTRIAXone sodium 1 GM in 0.9 % Sodium Chloride 50 ML IV (23:56)
[2022-12-31] VITALS (8 sets, daily range): BP systolic 115–130; BP diastolic 60–74; PULSE 75–88; RESP 14–18; TEMP 35.9–36.8; O2SAT 95–99
[2022-12-31 00:21] LABS: COVID-19 Test Negative (Negative); IDNOW Serial# BCCEAD1C
[2022-12-31] MEDS: metroNIDAZOLE/NS 500 MG/100 ML PIGGYBACK 100 MG IV ×3 (01:11→16:08)
[2022-12-31] MEDS: Lactated Ringers 1,000 ML 100 ML IVCONT ×2 (01:11→16:08)
[2022-12-31 06:53] LABS: Hematocrit 38.8 % (37.0-47.0); Hemoglobin 12.4 g/dl (12.0-16.0); Mean Corpuscular Hemoglobin 29.8 pg (27.0-33.0); Mean Corpuscular Volume 93.3 fL (80.0-98.0); Mean Platelet Volume 9.8 fL (9.4-12.3); Platelet Count 260 X10*3/uL (160-400); Red Blood Count 4.16 X10*6/uL (4.20-5.50); Red Cell Distribution Width 14.5 % (11.0-16.0); White Blood Count 11.4 X10*3/uL (4.8-10.8)
[2022-12-31 07:11] LABS: Anion Gap 17 (12-20); Blood Urea Nitrogen 18 mg/dL (9-16); Calcium 9.3 mg/dL (8.4-10.2); Carbon Dioxide 21 mmol/L (22-29); Chloride 101 mmol/L (96-108); Creatinine Clr Calc Pharmacy 69.7; Estimated Glomerular Filt Rate > 60; Glucose Random 139 mg/dL (60-115); Potassium 5.1 mmol/L (3.3-5.1); Sodium 134 mmol/L (135-145)
[2022-12-31 07:12] LABS: C Reactive Protein 20.46 mg/dL (< or = 0.50)
[2022-12-31 07:34] LABS: Band Neutrophils Percent 23 % (3-5); Lymphocytes Percent Manual 9 % (20-40); Neutrophils Absolute Manual 10.4 X10*3/uL (2.0-8.3); Neutrophils Percent Manual 68 % (45-73)
[2022-12-31 07:36] LABS: Burr Cells 2+ (3-5) /OIF; RBC Morphology NOTED
[2022-12-31 07:37] LABS: Platelet Estimate NORMAL (NORMAL); Platelet Morphology Comment NORMAL
[2022-12-31 07:54] LABS: Erythrocyte Sedimentation Rate 40 MM/HR (0-20)
[2022-12-31] MEDS: methylPREDNISolone Sod Succ 40 MG/ML VIAL 20 MG IVPUSH ×3 (08:23→23:20)
[2022-12-31] MEDS: Ferrous Sulfate 324 MG TABLET.DR PO (08:24)
[2022-12-31] MEDS: Omeprazole 20 MG CAPSULE.DR PO (08:24)
--- NOTE | 2022-12-31 10:21 | PC.NURSE ---
RHYS AWARE OF IV INFILTRATE, AND DIFFICULTY TO OBTAIN ACCESS. WILL ATTEMPT US GUIDED LINE
--- NOTE | 2022-12-31 11:15 | P.PNIM_ITS ---
Subjective Subjective Date of Service: 12/31/22 Interval History: abd pain improved no further diarrhea no fever Review of Systems Review of Systems: Yes all other systems are reviewed and are negative Physical Exam Vital Signs: Vital Signs: Last Vital Signs Temp 98.3 F 12/31/22 10:00 Pulse 76 12/31/22 10:00 Resp 16 12/31/22 10:00 BP 119/64 12/31/22 10:00 Pulse Ox 97 12/31/22 10:00 O2 Del Method Room Air 12/31/22 10:00 BMI result Body Mass Index 26.6 Gen: in no acute distress HEENT: sclera anicteric, moist mucus membranes Neck: supple Lungs: clear to auscultation bilaterally Heart: regular rate and rhythm, no murmurs Abd: soft, non-tender, non-distended Ext: no edema Skin: warm/well-perfused Neuro: alert and oriented x3, no focal findings Psych: appropriate affect Objective Data Active Medications Acetaminophen (Acetaminophen 325 Mg Tablet) 650 mg PO Q6H PRN PRN Reason: Pain, Mild (Pain Scale 1-3) Albuterol Sulfate (Albuterol Sulfate 90 Mcg 8 Gm Inhaler) 2 puff INHALE Q4H PRN PRN Reason: wheezing Ferrous Sulfate (Ferrous Sulfate 324 Mg Tablet.) 324 mg PO DAILY [facility] Last Admin: 12/31/22 08:24 Dose: 324 mg Documented By: FERCHO Furosemide (Furosemide 20 Mg Tablet) 20 mg PO Q48H PRN; Protocol PRN Reason: Edema Lactated Ringer's (Lr) 1,000 mls @ 100 mls/hr IVCONT .Q10H [facility] Last Admin: 12/31/22 01:11 Dose: 100 mls/hr Documented By: JULITO Ceftriaxone Sodium 1 gm/ (Sodium Chloride) 50 mls @ 100 mls/hr IV Q24H [facility] Last Infusion: 12/31/22 00:41 Dose: 0 mls/hr Documented By: JULITO Metronidazole (Flagyl) 500 mg in 100 mls @ 100 mls/hr IV Q8H [facility] Last Admin: 12/31/22 08:24 Dose: 100 mls/hr Documented By: FERCHO Loratadine (Loratadine 10 Mg Tablet) 10 mg PO BEDTIME [facility] Methylprednisolone Sodium Succinate (Methylprednisolone Sod Succ 40 Mg/Ml Vial) 20 mg IVPUSH Q8H [facility] Last Admin: 12/31/22 08:23 Dose: 20 mg Documented By: FERCHO Montelukast Sodium (Montelukast Sodium 10 Mg Tablet) 10 mg PO BEDTIME [facility] Non-Formulary Medication (Dupilumab [Dupixent Pen]) 300 mg SUBCUT Q2W [facility] Omeprazole (Omeprazole 20 Mg Capsule.Dr) 20 mg PO DAILY@0630 [facility] Last Admin: 12/31/22 08:24 Dose: 20 mg Documented By: FERCHO Ondansetron HCl (Ondansetron Hcl 4 Mg/2 Ml Vial) 4 mg IVPUSH Q8H PRN PRN Reason: Nausea and Vomiting Pharmacy Consult (Consult Rx Perform Med Rec) 1 each MISCELLANE ONCE PRN PRN Reason: Consult order Sodium Chloride (0.9 % Sodium Chloride Flush 3 Ml Syringe) 3 ml IVFLUSH QSHIFT [facility] Last Admin: 12/31/22 08:25 Dose: Not Given Documented By: FERCHO Non-Admin Reason: IV Running Labs 12/31/22 05:58 12/31/22 05:58 Labs: Laboratory Results - last 24 hr 12/30/22 12/30/22 12/30/22 12:29 12:29 12:29 MCV 92.1 MCH 29.6 MCHC 32.1 RDW 14.8 Plt Count 259 D MPV 9.1 L Immature Gran % (Auto) 0.3 Neut % (Auto) 75.6 H Lymph % (Auto) 8.3 L [place] % (Auto) 7.6 Eos % (Auto) 8.0 H Baso % (Auto) 0.2 Lymph # (Auto) 1.1 L [place] # (Auto) 1.0 Eos # (Auto) 1.1 H Baso # (Auto) 0.0 Abs Immat Gran (auto) 0.04 H Absolute Neuts (auto) 10.0 H Absolute Nucleated RBC 0.000 Nucleated RBC % (auto) 0.0 Neutrophils % (Manual) Band Neutrophils % Lymphocytes % (Manual) Abs Neuts (Manual) Lymphocytes # (Manual) Platelet Estimate Plt Morphology Comment RBC Morphology Lynn Cells ESR PT 11.3 INR 1.0 APTT 25.1 L Anion Gap 13 Estim Creat Clear Calc 60.0 Estimated GFR 52 Random Glucose 121 H Calcium 9.0 Total Bilirubin 1.7 H AST 72 H ALT 83 H Alkaline Phosphatase 104 C-Reactive Protein Total Protein 7.5 Albumin 4.3 Lipase 86 H Stool Occult Blood COVID-19 (NOA) COVID-19 [facility] Blood Type Antibody Screen 12/30/22 12/30/22 12/31/22 12:29 20:48 00:00 MCV MCH MCHC RDW Plt Count MPV Immature Gran % (Auto) Neut % (Auto) Lymph % (Auto) [place] % (Auto) Eos % (Auto) Baso % (Auto) Lymph # (Auto) [place] # (Auto) Eos # (Auto) Baso # (Auto) Abs Immat Gran (auto) Absolute Neuts (auto) Absolute Nucleated RBC Nucleated RBC % (auto) Neutrophils % (Manual) Band Neutrophils % Lymphocytes % (Manual) Abs Neuts (Manual) Lymphocytes # (Manual) Platelet Estimate Plt Morphology Comment RBC Morphology Lynn Cells ESR PT INR APTT Anion Gap Estim Creat Clear Calc Estimated GFR Random Glucose Calcium Total Bilirubin AST ALT Alkaline Phosphatase C-Reactive Protein Total Protein Albumin Lipase Stool Occult Blood POSITIVE COVID-19 (NOA) Negative COVID-19 [facility] Com See Note Blood Type O Positive Antibody Screen NEGATIVE 12/31/22 12/31/22 12/31/22 05:58 05:58 06:39 MCV 93.3 MCH 29.8 MCHC 32.0 RDW 14.5 Plt Count 260 MPV 9.8 Immature Gran % (Auto) Cancelled Neut % (Auto) Cancelled Lymph % (Auto) Cancelled [place] % (Auto) Cancelled Eos % (Auto) Cancelled Baso % (Auto) Cancelled Lymph # (Auto) Cancelled [place] # (Auto) Cancelled Eos # (Auto) Cancelled Baso # (Auto) Cancelled Abs Immat Gran (auto) Cancelled Absolute Neuts (auto) Cancelled Absolute Nucleated RBC 0.000 Nucleated RBC % (auto) 0.0 Neutrophils % (Manual) 68 Band Neutrophils % 23 H Lymphocytes % (Manual) 9 L Abs Neuts (Manual) 10.4 H Lymphocytes # (Manual) 1.0 L Platelet Estimate NORMAL Plt Morphology Comment NORMAL RBC Morphology NOTED Lynn Cells 2+ (3-5) ESR 40 H PT INR APTT Anion Gap 17 Estim Creat Clear Calc 69.7 Estimated GFR > 60 Random Glucose 139 H Calcium 9.3 Total Bilirubin AST ALT Alkaline Phosphatase C-Reactive Protein Total Protein Albumin Lipase Stool Occult Blood COVID-19 (NOA) COVID-19 [facility] Blood Type Antibody Screen 12/31/22 06:39 MCV MCH MCHC RDW Plt Count MPV Immature Gran % (Auto) Neut % (Auto) Lymph % (Auto) [place] % (Auto) Eos % (Auto) Baso % (Auto) Lymph # (Auto) [place] # (Auto) Eos # (Auto) Baso # (Auto) Abs Immat Gran (auto) Absolute Neuts (auto) Absolute Nucleated RBC Nucleated RBC % (auto) Neutrophils % (Manual) Band Neutrophils % Lymphocytes % (Manual) Abs Neuts (Manual) Lymphocytes # (Manual) Platelet Estimate Plt Morphology Comment RBC Morphology Lynn Cells ESR PT INR APTT Anion Gap Estim Creat Clear Calc Estimated GFR Random Glucose Calcium Total Bilirubin AST ALT Alkaline Phosphatase C-Reactive Protein 20.46 H Total Protein Albumin Lipase Stool Occult Blood COVID-19 (NOA) COVID-19 [facility] Blood Type Antibody Screen Assessment and Plan (1) Colitis: Status: Acute Plan d#2 57yo F with UC, off mesalamine for at least a week, presenting with bloody diarrhea and admitted for UC flare # UC flare - on IV methylprednisolone + cetriaxone metronidazole, GI consult pending, GI panel + Cdiff pending, clear liquid diet # GERD - continue PPI # VTE ppx: SCDs # dispo: home eventually In my clinical judgment, the patient requires continued inpatient hospitalization for the following reasons: IV ABX + steroids, GI evaluation Time Spent With Patient Time: Total time managing care of this patient today __35__ minutes. Quality Stroke Does the patient have a stroke diagnosis?: No VTE Prior VTE?: No VTE Risk Level:: Medical - moderate - high VTE Device Contraindication: N/A - Device Ordered VTE Drug Contraindication: Treatment Not Indicated
[2022-12-31 15:06] LABS: CDiff Gene PCR NEGATIVE (Negative)
--- NOTE | 2022-12-31 16:29 | PM.EVENT ---
Event Note Date of Service: 12/31/22 Event Note: GI consult dictated agree with steroids, await stool studies discussed briefly further treatment options with azathioprine and biologics. Time Spent With Patient Time: Total time managing care of this patient today ____ minutes.
[2022-12-31] MEDS: Montelukast Sodium 10 MG TABLET PO (20:14)
[2022-12-31] MEDS: Loratadine 10 MG TABLET PO (20:14)
[2022-12-31] MEDS: cefTRIAXone sodium 1 GM in 0.9 % Sodium Chloride 50 ML IV (23:20)
[2023-01-01] MEDS: 0.9 % Sodium Chloride Flush 3 ML SYRINGE IVFLUSH (00:15)
[2023-01-01] MEDS: metroNIDAZOLE/NS 500 MG/100 ML PIGGYBACK 100 MG IV ×3 (00:15→15:03)
[2023-01-01 03:07] VITALS: BP 120/69; PULSE 65; RESP 16; TEMP 35.8; O2SAT 97
[2023-01-01] MEDS: Lactated Ringers 1,000 ML 100 ML IVCONT ×2 (05:13→11:49)
[2023-01-01] MEDS: Omeprazole 20 MG CAPSULE.DR PO (05:13)
[2023-01-01 07:10] LABS: Hematocrit 33.2 % (37.0-47.0); Hemoglobin 10.8 g/dl (12.0-16.0); Mean Corpuscular HGB Conc 32.5 g/dl (31.0-35.0); Mean Corpuscular Volume 92.2 fL (80.0-98.0); Mean Platelet Volume 10.1 fL (9.4-12.3); Platelet Count 264 X10*3/uL (160-400); Red Cell Distribution Width 14.4 % (11.0-16.0); White Blood Count 10.8 X10*3/uL (4.8-10.8)
[2023-01-01] MEDS: Ferrous Sulfate 324 MG TABLET.DR PO (07:20)
[2023-01-01] MEDS: methylPREDNISolone Sod Succ 40 MG/ML VIAL 20 MG IVPUSH ×2 (07:20→15:03)
[2023-01-01 07:27] LABS: Alanine Aminotransferase 34 U/L (0-31); Albumin Level 3.6 g/dL (3.5-5.0); Alkaline Phosphatase 82 U/L (39-117); Anion Gap 15 (12-20); Aspartate Amino Transferase 11 U/L (5-31); Bilirubin Total 0.3 mg/dL (0.0-1.0); Blood Urea Nitrogen 15 mg/dL (9-16); Calcium 8.8 mg/dL (8.4-10.2); Carbon Dioxide 23 mmol/L (22-29); Chloride 105 mmol/L (96-108); Creatinine Clr Calc Pharmacy 91.3; Estimated Glomerular Filt Rate > 60; Glucose Random 128 mg/dL (60-115); Potassium 4.3 mmol/L (3.3-5.1); Sodium 139 mmol/L (135-145); Total Protein 6.5 g/dL (6.5-8.0)
[2023-01-01 07:34] VITALS: BP 126/66; PULSE 68; RESP 16; TEMP 36.1; O2SAT 98
[2023-01-01 07:49] LABS: TSH reflex Free T4 0.21 uIU/mL (0.32-4.0)
[2023-01-01 08:52] LABS: Free T4 (Free Thyroxine) 1.23 ng/dL (0.71-1.85)
[2023-01-01 10:35] LABS: Adenovirus F 40/41 Not Detected (Not Detect.); Astrovirus Not Detected (Not Detect.); Campylobacter Not Detected (Not Detect.); Cryptosporidium Not Detected (Not Detect.); Cyclospora cayetanensis Not Detected (Not Detect.); E. coli EAEC Not Detected (Not Detect.); E. coli EPEC Not Detected (Not Detect.); E. coli ETEC Not Detected (Not Detect.); E. coli STEC Not Detected (Not Detect.); Entamoeba histolytica Not Detected (Not Detect.); Giardia lamblia Not Detected (Not Detect.); Norovirus GI/GII Not Detected (Not Detect.); Plesiomonas shigelloides Not Detected (Not Detect.); Rotavirus A Not Detected (Not Detect.); Salmonella Not Detected (Not Detect.); Sapovirus Not Detected (Not Detect.); Shigella sp./EIEC Not Detected (Not Detect.); Vibrio Not Detected (Not Detect.); Vibrio Cholerae Not Detected (Not Detect.); Yersinia enterocolitica Not Detected (Not Detect.)
[2023-01-01 11:13] VITALS: BP 123/59; PULSE 87; RESP 16; TEMP 36.2; O2SAT 98
--- NOTE | 2023-01-01 12:24 | PM.DS ---
DS: Providers Provider Date of Service: 01/01/23 Date of admission: 12/30/22 23:13 Date of discharge: 01/01/23 Primary care physician: Unknown Physician Consults: 12/30/22 23:08 Consult to Gastroenterology Routine Consulting Provider: Lasha Soria Reason for consultation: known pt, colitis flair Has provider been notified: No DS: Diagnosis Discharge Diagnosis (1) Ulcerative colitis: Status: Acute DS: Summary Hospital Course Hospital Course: from admission H+P on 12/30/[address] Israel Bailey MD: This is a 57-year-old female who reports a history of ulcerative colitis for which she takes mesalamine presents the hospital with complaints of multiple episodes of diarrhea as well as blood-tinged stools.? States her symptoms started several days ago, she reports that she stop taking mesalamine few weeks ago because was not doing anything for her.? He has not informed her GI doctor.? She states diffuse abdominal pain, she has had 6-7 episodes of diarrhea daily, she initially had nausea and 1 episode of vomiting earlier in the week that has not resolved, she denies having any headache or change in vision, reports no chest pain or shortness of breath, no urinary symptoms and no lower extremity edema.? On arrival to the ED patient hemodynamically stable with no significant abnormal vitals except for a slightly elevated heart rate of 106 Labs are significant for WBC count of 13.2, total bili of 1.7, AST of 72, ALT of 83 ?labs otherwise unremarkable , stool occult positive Abdomen pelvic CT shows suggest presence of mild pancolitis, Patient started on steroids, will be admitted for further management 57yo F with UC, off mesalamine for at least a week, presenting with bloody diarrhea and admitted for UC flare to the medical-surgical floor was treated with IV methylprednisone as well as IV ceftriaxone and metronidazole with GI consultation. Workup for infection including Cdiff was negative, so antibiotics were discontinued. Diet was advanced and her stool became more formed and without blood. She was discharged home on a 1-month prednisone taper and should follow up with Dr Lasha Soria from [facility] to discuss azathioprine versus biologic therapy. Incidentally, her TSH was low at 0.21 with a normal free T4. To distinguish between sick euthyroid syndrome and sublinical hyperthyroidism, a repeat TSH with reflex free T4 should be be repeated in 1 month. Time Spent with Patient Time attestation: Total time managing care of this patient today __35__ minutes. Discharge coordination time: Greater than 30 minutes Quality: Safe Use of Opioids Does Pt have an Active Cancer Diagnosis on the Problem List?: No Quality: Stroke Does the patient have a stroke diagnosis?: No Physical Exam Vital Signs: Vital Signs: Last Vital Signs Temp 97.1 F 01/01/23 11:13 Pulse 87 01/01/23 11:13 Resp 16 01/01/23 11:13 BP 123/59 L 01/01/23 11:13 Pulse Ox 98 01/01/23 11:13 O2 Del Method Room Air 01/01/23 11:13 BMI result Body Mass Index 26.6 Gen: in no acute distress HEENT: sclera anicteric, moist mucus membranes Neck: supple Lungs: clear to auscultation bilaterally Heart: regular rate and rhythm, no murmurs Abd: soft, non-tender, non-distended Ext: no edema Skin: warm/well-perfused Neuro: alert and oriented x3, no focal findings Psych: appropriate affect DS: Data Data Completed and Pending Completed studies during hospitalization [Text1]: Laboratory Results WBC 10.8 X10*3/uL (4.8-10.8) 01/01/23 06:13 RBC 3.60 X10*6/uL (4.20-5.50) L 01/01/23 06:13 Hgb 10.8 g/dl (12.0-16.0) L 01/01/23 06:13 Hct 33.2 % (37.0-47.0) L 01/01/23 06:13 MCV 92.2 fL (80.0-98.0) 01/01/23 06:13 MCH 30.0 pg (27.0-33.0) 01/01/23 06:13 MCHC 32.5 g/dl (31.0-35.0) 01/01/23 06:13 RDW 14.4 % (11.0-16.0) 01/01/23 06:13 Plt Count 264 X10*3/uL (160-400) 01/01/23 06:13 MPV 10.1 fL (9.4-12.3) 01/01/23 06:13 Immature Gran % (Auto) Cancelled 12/31/22 05:58 Neut % (Auto) Cancelled 12/31/22 05:58 Lymph % (Auto) Cancelled 12/31/22 05:58 [place] % (Auto) Cancelled 12/31/22 05:58 Eos % (Auto) Cancelled 12/31/22 05:58 Baso % (Auto) Cancelled 12/31/22 05:58 Lymph # (Auto) Cancelled 12/31/22 05:58 [place] # (Auto) Cancelled 12/31/22 05:58 Eos # (Auto) Cancelled 12/31/22 05:58 Baso # (Auto) Cancelled 12/31/22 05:58 Abs Immat Gran (auto) Cancelled 12/31/22 05:58 Absolute Neuts (auto) Cancelled 12/31/22 05:58 Absolute Nucleated RBC 0.000 X10*3/uL (0.0-0.012) 01/01/23 06:13 Nucleated RBC % (auto) 0.0 /100WBC (0.0-0.2) 01/01/23 06:13 Neutrophils % (Manual) 68 % (45-73) 12/31/22 05:58 Band Neutrophils % 23 % (3-5) H 12/31/22 05:58 Lymphocytes % (Manual) 9 % (20-40) L 12/31/22 05:58 Abs Neuts (Manual) 10.4 X10*3/uL (2.0-8.3) H 12/31/22 05:58 Lymphocytes # (Manual) 1.0 X10*3/uL (1.2-4.9) L 12/31/22 05:58 Platelet Estimate NORMAL (NORMAL) 12/31/22 05:58 Plt Morphology Comment NORMAL 12/31/22 05:58 RBC Morphology NOTED 12/31/22 05:58 Darius Cells 2+ (3-5) /OIF 12/31/22 05:58 ESR 40 MM/HR (0-20) H 12/31/22 06:39 PT 11.3 SEC (10.0-13.1) 12/30/22 12:29 INR 1.0 (0.9-1.1) 12/30/22 12:29 APTT 25.1 SEC (26.0-36.4) L 12/30/22 12:29 Sodium 139 mmol/L (135-145) 01/01/23 06:13 Potassium 4.3 mmol/L (3.3-5.1) 01/01/23 06:13 Chloride 105 mmol/L (96-108) 01/01/23 06:13 Carbon Dioxide 23 mmol/L (22-29) 01/01/23 06:13 Anion Gap 15 (12-20) 01/01/23 06:13 BUN 15 mg/dL (9-16) 01/01/23 06:13 Creatinine 0.71 mg/dL (0.5-1.4) 01/01/23 06:13 Estim Creat Clear Calc 91.3 01/01/23 06:13 Estimated GFR > 60 01/01/23 06:13 Random Glucose 128 mg/dL (60-115) H 01/01/23 06:13 Calcium 8.8 mg/dL (8.4-10.2) 01/01/23 06:13 Total Bilirubin 0.3 mg/dL (0.0-1.0) 01/01/23 06:13 AST 11 U/L (5-31) 01/01/23 06:13 ALT 34 U/L (0-31) H 01/01/23 06:13 Alkaline Phosphatase 82 U/L (39-117) 01/01/23 06:13 C-Reactive Protein 20.46 mg/dL (< or = 0.50) H 12/31/22 06:39 Total Protein 6.5 g/dL (6.5-8.0) 01/01/23 06:13 Albumin 3.6 g/dL (3.5-5.0) 01/01/23 06:13 Lipase 86 U/L (8-78) H 12/30/22 12:29 TSH 0.21 uIU/mL (0.32-4.0) L 01/01/23 06:13 Free T4 1.23 ng/dL (0.71-1.85) 01/01/23 06:13 Stool Occult Blood POSITIVE (NEGATIVE) 12/30/22 20:48 Stl C. cayetanensis PCR Not Detected (Not Detect.) 12/31/22 13:35 Stool Rotavirus A PCR Not Detected (Not Detect.) 12/31/22 13:35 Stl Adenov F 40/41 PCR Not Detected (Not Detect.) 12/31/22 13:35 Stool Astrovirus (PCR) Not Detected (Not Detect.) 12/31/22 13:35 Stool Campylobacter PCR Not Detected (Not Detect.) 12/31/22 13:35 Stool Cryptosporidium PCR Not Detected (Not Detect.) 12/31/22 13:35 Stl Sh Tox Pr E STEC PCR Not Detected (Not Detect.) 12/31/22 13:35 Stool E coli O157 PCR Not applicable (Not Detect.) 12/31/22 13:35 Stl Enterotoxigenic E PCR Not Detected (Not Detect.) 12/31/22 13:35 Stool EPEC (PCR) Not Detected (Not Detect.) 12/31/22 13:35 Stool EAEC (PCR) Not Detected (Not Detect.) 12/31/22 13:35 Stl E. histolytica PCR Not Detected (Not Detect.) 12/31/22 13:35 Stool Giardia Lamblia PCR Not Detected (Not Detect.) 12/31/22 13:35 Stl P. shigelloides PCR Not Detected (Not Detect.) 12/31/22 13:35 Stool Salmonella PCR Not Detected (Not Detect.) 12/31/22 13:35 Stool Sapovirus (PCR) Not Detected (Not Detect.) 12/31/22 13:35 Stl Shigella/EIEC PCR Not Detected (Not Detect.) 12/31/22 13:35 St Y.enterocolitica PCR Not Detected (Not Detect.) 12/31/22 13:35 Stool Vibrio (PCR) Not Detected (Not Detect.) 12/31/22 13:35 Stl Vibrio cholerae PCR Not Detected (Not Detect.) 12/31/22 13:35 Stl Norovirus GI/GII PCR Not Detected (Not Detect.) 12/31/22 13:35 C. difficile Tox B Gene NEGATIVE (Negative) 12/31/22 13:35 COVID-19 (NOA) Negative (Negative) 12/31/22 00:00 COVID-19 Clin Com See Note 12/31/22 00:00 Blood Type O Positive 12/30/22 12:29 Antibody Screen NEGATIVE 12/30/22 12:29 Impressions Abdomen/Pelvis CT 12/30/22 12:38 IMPRESSION: * This noncontrast examination suggests presence of mild pancolitis. Note that the colonic wall thickening, inflammatory changes, were worse on the prior exam from 02/15/2022. The stomach and small bowel are grossly unremarkable. * Diffuse hepatic steatosis. * The previously observed stone of the lower pole of the right kidney is no longer present. No new renal stones or hydronephrosis. Discharge Plan Discharge Anticipated Discharge Date/Time: 01/01/23 11:44 Patient Disposition: Home, Self-Care Discharge Diagnosis: Ulcerative colitis flare Referrals: Nancie Haines MD [Physician] - 1 Week Lasha Soria [Physician] - 2 Weeks Discharge Medications: New prednisone 10 mg tablet 10 mg PO DIRECTED Qty: 70 0RF Rx Instructions: 40 mg daily x 7 days, then 30 mg daily x 7 days, then 20 mg daily x 7 days, then 10 mg daily x 7 days Continued dicyclomine 20 mg tablet 20 mg PO QID PRN (Reason: abdominal pain) Qty: 20 0RF omeprazole 20 mg capsule,delayed release(DR/EC) 1 cap PO DAILY@0630 montelukast 10 mg tablet 1 tab PO BEDTIME albuterol sulfate 90 mcg/actuation HFA aerosol inhaler 2 puff PO Q4H PRN (Reason: wheezing) Dupixent Pen 300 mg/2 mL pen injector 300 mg subcut Q2W loratadine 10 mg Tablet 10 mg PO BEDTIME prednisone 10 mg tablet 10 mg PO DAILY ferrous sulfate 325 mg (65 mg iron) tablet,delayed release (DR/EC) 325 mg PO DAILY furosemide 20 mg tablet 20 mg PO Q48H PRN (Reason: Edema) Rx Instructions: only used when needed Discharge Orders: Discharge Order (Routine); Ordered 01/01/23 Ordered By: Honorio Osullivan Diet: Advance to usual diet Activity on Discharge: As tolerated Stand Alone Forms: Patient Portal Discharge page Other Ambulatory Orders: TSH reflex Free T4 (Routine) Timeframe: 1 Month Facility: [facility] - Location: Laboratory Ordered By: Honorio Osullivan Care Plan Goals: control [facility] Concerns: ulcerative colitis flare Plan of Treatment: prednisone taper as follows: 40 mg (4 tabs) daily x 7 days, then 30 mg (3 tabs) daily x 7 days, then 20 mg (2 tabs) daily x 7 days, then 10 mg (1 tab) daily x 7 days follow up with Dr Soria within 2 weeks Please follow up with your primary care doctor within 1 week. Return to the hospital if you experience recurrent or worsening symptoms. Repeat thyroid function tests [TSH with reflex free T4] in 4 weeks. TSH was low with normal free T4, but this was drawn during acute illness and should be repeated. Assessment: See Discharge Summary.
--- NOTE | 2023-01-01 12:26 | MHC.CM.PN ---
PT REPORTS SHE LIVES WITH HER AND CHILDREN SHE REPORTS SHE IS INDEPENDENT WITH CARE SHE HAS A NEBULIZER FOR DME BUT RARELY USES IT SHE ALSO HAS A CANE AND WALKER THAT SHE DOES NOT USE SHE HAS NO SERVICES SHE IS COVID VAX WITH [facility] SHE HAS A HCP ON FILE PCP: MITA GARG IN [place] PT WILL DC HOME TODAY WITH NO SERVICES FAMILY TO TRANSPORT
[2023-01-01 14:43] VITALS: BP 137/64; PULSE 79; RESP 16; TEMP 36.5; O2SAT 98
[2023-01-03 04:05] LABS: ~Hepatitis C Antibody Nonreactive (Nonreactive)
[2023-01-03 04:06] LABS: HBS Num1 0.59 mIU/mL (0-7.99); HBc Num1 0.08 S/CO (0.00-0.79); Hepatitis B Core Antibody Nonreactive (Nonreactive); Hepatitis B Surface Antigen Negative (Negative); ~Hepatitis B Surface Antibody NONREACTIVE (Nonreactive)
--- NOTE | 2023-01-03 08:14 | CONS_ITS ---
DATE OF SERVICE: 12/31/2022 REFERRING PHYSICIAN: Israel Bailey REASON FOR CONSULTATION: Rectal bleeding and history of colitis. HISTORY OF PRESENT ILLNESS: The patient is a pleasant 57-year-old woman, well known to me from prior evaluation. She has a history of ulcerative colitis, treated with mesalamine since the diagnosis over the past year and has required multiple prednisone tapers for exacerbations. She states she stopped taking mesalamine several weeks ago due to perceiving that it was not helping. She had been on a prednisone taper and was down to 10 mg, but 2 days prior to admission developed nausea, vomiting, abdominal pain, and diarrhea, which became bloody. There was no associated fevers or chills. She had no recent travel, infections, or suspect food ingestions. She presented to the emergency room where she was evaluated with laboratory studies including blood work showing a hematocrit of 39.9 and a white count of 13.2. Subsequently, she underwent imaging studies including CT scanning of the abdomen and pelvis, which was reviewed and was consistent with mild pancolitis, although improved from 02/15/2022. Hepatic steatosis was noted too. She was found to have elevation of her liver enzymes with a total bilirubin of 1.7, transaminases in the 70 to 80 range and normal alkaline phosphatase. She has been treated with antibiotics and steroids and reports feeling better. Her diet has been advanced. Her last stool reportedly showed a moderate amount of blood and mucus. Stool specimens have been obtained and are pending. PAST MEDICAL HISTORY: 1. Ulcerative colitis as above. 2. Gastroesophageal reflux disease. 3. Elevated cholesterol. CURRENT MEDICATIONS: Current medication list is reviewed in the chart. ALLERGIES: MULTIPLE MEDICATIONS AND ENVIRONMENTAL ALLERGIES REVIEWED. FAMILY HISTORY: This is reviewed with the patient and is noncontributory. SOCIAL HISTORY: There is no current tobacco, alcohol, or substance abuse. REVIEW OF SYSTEMS: SKIN: No pruritus. HEENT: Negative. CARDIOPULMONARY: No shortness of breath or chest pain. GASTROINTESTINAL: As above. GENITOURINARY: Negative. NEUROPSYCHIATRIC: Negative. PHYSICAL EXAMINATION: GENERAL: Shows a pleasant female, lying comfortably in bed. VITAL SIGNS: Reviewed in the electronic medical record and are stable. SKIN: Anicteric. HEENT: Shows no scleral icterus. NECK: Without lymphadenopathy or thyromegaly. LUNGS: Clear. HEART: Shows regular rate and rhythm. S1, S2. No murmur. ABDOMEN: Soft without focal masses or tenderness. Bowel sounds are present. No organomegaly is noted. EXTREMITIES: Without edema. LABORATORY DATA: Remarkable for a white blood cell count as above and liver function tests as above. IMPRESSION: Colitis. This appears most consistent with an exacerbation of her ulcerative colitis, and I agree with treating with steroids, antibiotics should be given until stool testing shows no infection, then can be discontinued. She will need a steroid taper as an outpatient. I discussed this with her. I also discussed preliminarily the need for more aggressive treatment of her ulcerative colitis to prevent requiring frequent prednisone tapers. We discussed briefly azathioprine and treatment with biologics. She is somewhat anxious regarding the possible increased risk of skin cancers and lymphomas. She has followup colonoscopy scheduled for later this year. Thanks for asking me to see her. I will follow her in the hospital with you. MD MARQUEZ Gray/MENDEZ / [id number]
[2023-01-06 22:53] LABS: Calprotectin, Fecal 4410 mcg/g
== END 2023-01-01 18:06 | disposition home or self-care (01) | DRG 245 ==
LOC: HO.ED 20:59 → HO.EDOVER 23:20 → HO.S3 12-31 11:33
PROVIDERS: Internal Medicine Gastroenterology; Physician Assistant; Admitting Provider Internal Medicine; Emergency Provider Emergency Medicine; PCP Internal Medicine; Visit Provider Family Medicine
DX: K51.911 Ulcerative colitis, unspecified with rectal bleeding (principal); E78.00 Pure hypercholesterolemia, unspecified; K21.9 Gastro-esophageal reflux disease without esophagitis; Z20.822 Contact with and (suspected) exposure to COVID-19; Z79.899 Other long term (current) drug therapy
CPT/HCPCS: 36415; 74176; 80048; 80053; 82272; 83690; 83993; 84439; 84443; 85007; 85025; 85027; 85610; 85652; 85730; 86140; 86704; 86706; 86803; 86850; 86900; 86901; 87040; 87340; 87493; 87507; 87635; 99285; J0696; J2270; J2920; J2930

== ENCOUNTER 2023-02-04 06:32 | Day surgery (SDC) | payer OTHER, SELFPAY ==
--- NOTE | 2023-02-03 09:05 | P.CONAN_ITS ---
Documented by User: Chanelle Escobar NP 02/03/23 09:06 HPI - Anesthesia Eval Consult details Narrative: 57yo F for Colonoscopy PMFSH Active Problems Active Problems: All Active Problems (Updated 01/09/23 @ 00:02 by Background Daemon) Ulcerative colitis (Acute) Subclinical hyperthyroidism (Acute) Sick-euthyroid syndrome (Acute) Past Medical History Medical History (Updated 01/09/23 @ 00:02 by Background Daemon) Asthma Colitis COVID-19 vaccine series completed Elevated cholesterol GERD (gastroesophageal reflux disease) Rectal bleed Ulcerative colitis Family History Family history of problems with anesthesia: No Surgical History Surgical History H/O colonoscopy History of esophagogastroduodenoscopy (EGD) Hx of nasal polypectomy History of Problems with Anesthesia: No Social History Social History Household Members: Significant Other, Family and Children Housing: House Are you a primary progressive care nurse to a significant other at home: No Do you presently have visiting nurse or other home services: No Alcohol intake: never Patient Tobacco Use Status: Never used Tobacco Use of substances other than those prescribed or required for medical reasons: No Are you DNR?: No Advance Directives: No Advance Directives Information Provided: Yes Recently lost weight without trying: No Nutrition Risks: No Nutritional Risk service: No Current occupational status: unemployed Meds Allergies Allergy/AdvReac Type Severity Reaction Status Date / Time gluten Allergy Severe Difficulty Verified 12/31/22 14:57 Breathing almond Allergy Intermediate Itching ? Verified 12/30/22 12:13 animal dander Allergy Intermediate asthma Verified 12/30/22 12:13 exacerbation mite-Dermatophagoides Allergy Intermediate asthma Verified 12/30/22 12:13 farinae, louie exacerbation [dust mite - [place]] soy Allergy Intermediate Itching ? Verified 12/30/22 12:13 lactose AdvReac Mild Flatulence Verified 12/31/22 14:44 Home Medications Medication Instructions Recorded Confirmed Last Taken Type albuterol sulfate 90 mcg/actuation 2 puff PO Q4H PRN wheezing 02/01/22 12/30/22 Unknown History aerosol inhaler dupilumab 300 mg/2 mL subcutaneous 300 mg subcut Q2W 02/01/22 12/30/22 12/17/22 History pen injector (Dupixent) loratadine 10 mg tablet 10 mg PO BEDTIME 02/01/22 12/30/22 12/29/22 History montelukast 10 mg tablet 1 tab PO BEDTIME 02/01/22 12/30/22 12/29/22 History omeprazole 20 mg capsule,delayed 1 cap PO DAILY@0630 02/01/22 12/30/22 12/30/22 History release ferrous sulfate 325 mg (65 mg 325 mg PO DAILY abdominal pain 12/30/22 12/30/22 12/29/22 History iron) tablet,delayed release furosemide 20 mg tablet 20 mg PO Q48H PRN Edema 12/30/22 12/30/22 Unknown History prednisone 10 mg tablet 10 mg PO DAILY 12/30/22 12/30/22 12/29/22 History Exam Exam Date and Time: February 03, [id number] Pertinent Lab Results Pertinent Lab Results: Laboratory Tests 01/01/23 01/01/23 06:13 06:13 WBC 10.8 Hgb 10.8 L Hct 33.2 L Plt Count 264 Sodium 139 Potassium 4.3 Chloride 105 Carbon Dioxide 23 BUN 15 Creatinine 0.71 Assessment and Plan Assessment Anesthesia Assessment: Chart Reviewed Final Anesthetic Review Family History of Problems with Anesthesia: No History of Problems with Anesthesia: No Documented by User: Ravi Ruelas MD 02/04/23 08:46 [facility] Past Medical History Medical History (Updated 01/09/23 @ 00:02 by Mike Vance) Asthma Colitis COVID-19 vaccine series completed Elevated cholesterol GERD (gastroesophageal reflux disease) Rectal bleed Ulcerative colitis Surgical History Surgical History H/O colonoscopy History of esophagogastroduodenoscopy (EGD) Hx of nasal polypectomy Social History Social History Household Members: Significant Other, Family and Children Housing: House Are you a primary progressive care nurse to a significant other at home: No Do you presently have visiting nurse or other home services: No Alcohol intake: never Patient Tobacco Use Status: Never used Tobacco Use of substances other than those prescribed or required for medical reasons: No Are you DNR?: No Advance Directives: No Advance Directives Information Provided: Yes Recently lost weight without trying: No Nutrition Risks: No Nutritional Risk service: No Current occupational status: unemployed Meds Allergies Allergy/AdvReac Type Severity Reaction Status Date / Time gluten Allergy Severe Difficulty Verified 12/31/22 14:57 Breathing almond Allergy Intermediate Itching ? Verified 12/30/22 12:13 animal dander Allergy Intermediate asthma Verified 12/30/22 12:13 exacerbation mite-Dermatophagoides Allergy Intermediate asthma Verified 12/30/22 12:13 farinae, louie exacerbation [dust mite - [place]] soy Allergy Intermediate Itching ? Verified 12/30/22 12:13 lactose AdvReac Mild Flatulence Verified 12/31/22 14:44 Home Medications Medication Instructions Recorded Confirmed Last Taken Type albuterol sulfate 90 mcg/actuation 2 puff PO Q4H PRN wheezing 02/01/22 12/30/22 Unknown History aerosol inhaler dupilumab 300 mg/2 mL subcutaneous 300 mg subcut Q2W 02/01/22 12/30/22 12/17/22 History pen injector (Dupixent) loratadine 10 mg tablet 10 mg PO BEDTIME 02/01/22 12/30/22 12/29/22 History montelukast 10 mg tablet 1 tab PO BEDTIME 02/01/22 12/30/22 12/29/22 History omeprazole 20 mg capsule,delayed 1 cap PO DAILY@0630 02/01/22 12/30/22 12/30/22 History release ferrous sulfate 325 mg (65 mg 325 mg PO DAILY abdominal pain 12/30/22 12/30/22 12/29/22 History iron) tablet,delayed release furosemide 20 mg tablet 20 mg PO Q48H PRN Edema 12/30/22 12/30/22 Unknown History prednisone 10 mg tablet 10 mg PO DAILY 12/30/22 12/30/22 12/29/22 History Exam Airway Mallampati Class: I TM Dist: >3cm Neck ROM: Full Heart: ok Lungs: ok Assessment and Plan Assessment Anesthesia Assessment: Anesthesia Plan Discussed Final Anesthetic Review NPO: Yes ASA Class: II Final Preanesthetic Review: No Changes in Pt Med Stat, Meds/Allgs Chart Reviewed, Consent Obtained/Reviewed and Anes Risks/Benef Reviewed Patient Risk: Intermediate Procedure Risk: Low Anesthetic Plan Anesthetic Plan: MAC: and Agree w/ Assess. and Plan Disposition: Standard PACU
[2023-02-04 07:12] VITALS: BMI 26.6
[2023-02-04 07:27] VITALS: BP 120/74; PULSE 105; RESP 16; TEMP 36.3; O2SAT 96
[2023-02-04] MEDS: Lactated Ringers 1,000 ML 100 ML IVCONT (07:39)
--- NOTE | 2023-02-04 08:22 | P.HPSUR_ITS ---
Pre-Procedural Eval Section A Date of Service: 02/04/23 Section B Chief Complaint: Ulcerative (chronic) pancolitis with rectal bleedi Details of Present Illness: see H&P no changes Relevant Family History (Specify if Yes): No Relevant Social History: None Present Medications: see Short Stay Collaborative assessment Medical History: No relevant PMH History of Previous Operations: No relevant previous surgery Allergies: Allergies Allergy/AdvReac Type Severity Reaction Status Date / Time gluten Allergy Severe Difficulty Verified 12/31/22 14:57 Breathing almond Allergy Intermediate Itching ? Verified 12/30/22 12:13 animal dander Allergy Intermediate asthma Verified 12/30/22 12:13 exacerbation mite-Dermatophagoides Allergy Intermediate asthma Verified 12/30/22 12:13 farinae, louie exacerbation [dust mite - [place]] soy Allergy Intermediate Itching ? Verified 12/30/22 12:13 lactose AdvReac Mild Flatulence Verified 12/31/22 14:44 Review of Systems Sugical H&P ROS: Negative: Constitution, Cardiovascular, Respiratory, Neurological, Psychiatric, Hem-Onc, Allergic/Immunologic, Gastrointestinal, Genitourinary, Musculoskeletal, Integumentary, Endocrine and Eyes/Ears/Nose/Throat Exam Surgical H&P Exam: Normal: HEENT, Normal: Heart, Normal: Lungs, Normal: Extremities, Normal: Abdomen, Normal: Skin and Normal: Neurological Plan Diagnosis/Plan: Unchanged I have reviewed the history and physical and performed a pertinent physical examination on my patient. No changes have occurred unless specified. Time Spent With Patient Time: Total time managing care of this patient today ____ minutes.
[2023-02-04 09:08] VITALS: BP 97/58; PULSE 82; RESP 16; TEMP 36.8; O2SAT 95
--- NOTE | 2023-02-04 09:14 | P.BOP_ITS ---
Brief Operative Note Date of Service: 02/04/23 Pre-op diagnosis: uc Post-op diagnosis: same Procedure: colonoscopy Surgeon: Lasha Soria Anesthesia: MAC Was an [employer] used for this Procedure?: No Estimated blood loss (mL): 5 Pathology: other Condition: stable Disposition: PACU
[2023-02-04 09:23] VITALS: BP 119/66; PULSE 87; RESP 16; TEMP 36.4; O2SAT 98
--- NOTE | 2023-02-04 13:28 | OP_ITS ---
DATE OF SERVICE: 02/04/2023 SURGEON: Lasha Soria MD INDICATIONS: Ulcerative colitis. PREOPERATIVE DIAGNOSIS: POSTOPERATIVE DIAGNOSIS: PROCEDURE PERFORMED: Colonoscopy to the terminal ileum with biopsy. ESTIMATED BLOOD LOSS: COMPLICATIONS: ANESTHESIA: Monitored anesthesia care. ASSISTANTS: SPECIMENS: DESCRIPTION OF PROCEDURE: A history and physical was performed. The risks and benefits of the procedure were explained to the patient. Informed consent was obtained. The patient was placed in the left lateral decubitus position. A digital rectal exam was performed and was found to be normal. The Olympus pediatric video colonoscope was introduced into the rectum and advanced to the cecum without difficulty. The cecum was identified by transillumination, palpation, and identification of ileocecal valve. Examination was performed. The scope was removed. She tolerated the procedure well and was returned to the recovery area in stable condition. FINDINGS: The terminal ileum was examined and appeared normal. The visualized colonic mucosa showed changes of colitis with punctate ulceration and erythema, edema, and loss of vascular pattern throughout the entire colon. This appeared most active in the left colon with somewhat lesser degree of activity in the rectum and some intervening normal appearing mucosa. Biopsies were obtained throughout the colon. Retroflexed examination was normal. IMPRESSION: Ulcerative colitis. RECOMMENDATION: 1. Follow up the biopsy results. MD MARQUEZ Gray/TAEL / [id number] MTDD
== END 2023-02-04 09:50 | disposition home or self-care (01) ==
PROVIDERS: PCP Internal Medicine; Visit Provider Internal Medicine Gastroenterology
PROC: 0DJD8ZZ Inspection of Lower Intestinal Tract, Via Natural or Artificial Opening Endoscopic (ICD-10-PCS; CPT 45378; principal; 2023-02-04 08:10)
DX: K51.011 Ulcerative (chronic) pancolitis with rectal bleeding (principal); K21.9 Gastro-esophageal reflux disease without esophagitis; Z83.71 Family history of colonic polyps; J45.909 Unspecified asthma, uncomplicated; E78.00 Pure hypercholesterolemia, unspecified; Z79.51 Long term (current) use of inhaled steroids; Z79.52 Long term (current) use of systemic steroids; K90.41 Non-celiac gluten sensitivity; Z79.899 Other long term (current) drug therapy
CPT/HCPCS: 45380; 88305; J3010